=== PATIENT | male | born 1945 | race Caucasian/White ===

== ENCOUNTER → 2017-11-03 | Outpatient (CLI) | payer MEDICARE, OTHER ==
[~2017-11-03] MED LIST: ACCUPRIL PO; ACCUPRIL40 MG PO; ADULT LOW DOSE81 MG; ALBUTEROL INH INH; ALBUTEROL2.5 MG/0.1 INH; ALLOPURINOL 10100 M1 PO; ALLOPURINOL 30300 M1 PO; ALLOPURINOL PO; ASA5UEC PO; ATROVENT30 ML; AZITHROMYCIN1 GM PO; BENICAR20 MG PO; CARVEDILOL12.5 MG PO; CARVEDILOL6.25 MG PO; CELEBREX 200 M200 MG PO; CELEBREX PO; CELEXA 10 MG TA10 MG PO; CELEXA 20 MG TA20 M1 PO; CLONAZEPAM 0.50.5 M1 PO; COMBIVENT INH; DAILY MULTIPLE1 EACH PO; DEPO-TESTO200 MG/1 M INJECTION; EYE DROPS; FLEXERIL PO; FLOMAX0.4 MG PO; HCTZ PO; HYDROCHLOROTHIA25 M1 PO; HYDROCODONE-AP1 EACH PO; K-DUR10 MEQ PO; KEFLEX500 M1 PO; KLOR-CON 10 ER10 MEQ PO; LASIX 40 MG TAB40 M1 PO; LASIX 40 MG TAB40 M2 PO; LIORESAL 10 MG10 MG PO; LISINOPRIL10 MG PO; LOVASTAT20 PO; METAMUCIL1 EAC1 PO; METHADONE HCL 110 M1 PO; METHADONE HCL5 MG PO; METOPROLOL SUCC50 MG PO; METOPROLOL TART25 MG PO; MUCINEX600 MG PO; NEURONTIN100 MG PO; NORCO 10-325 T1 EACH PO; NORCO 5-325 TA1 EAC1 PO; POTASSIUM PO; PREDNISONE 10 M10 M1 PO; PROTONIX40 M1 PO; PROVENTIL; Q-VAR INH; QVAR HFA 440 MCG/UN1 INH; SINGULAIR 10 MG10 M1 PO; SINGULAIR 10 MG10 MG PO; TRAVATAN Z5 ML OP; TRAVATAN Z5 ML OPHTHALMIC; TYLENOL325 MG PO; XALATAN2.5 ML OPHTHALMIC; ZIAC
== END ==
LOC: M.RAD 12:17 → M.NUC 13:00
DX: R91.8 Other nonspecific abnormal finding of lung field (principal); I10 Essential (primary) hypertension; I63.50 Cerebral infarction due to unspecified occlusion or stenosis of unspecified cerebral artery

== ENCOUNTER 2018-03-04 07:28 | Inpatient (IN) | payer MEDICARE, OTHER ==
[~2018-03-04] VITALS: Ht 180.3 cm; Wt 113.9 kg
[~2018-03-04 07:28] MED LIST changes: -CLONAZEPAM 0.50.5 M1 PO; -FLOMAX0.4 MG PO; -KEFLEX500 M1 PO; -LASIX 40 MG TAB40 M2 PO; -LIORESAL 10 MG10 MG PO; -METOPROLOL TART25 MG PO
[2018-03-04 07:34] VITALS: BP 143/76
[2018-03-04] MEDS ORDERED: LASIX 40 MG TAB40 M2 PO (07:40)
[2018-03-04] MEDS ORDERED: KEFLEX500 M1 PO (07:41)
[2018-03-04] MEDS ORDERED: CLONAZEPAM 0.50.5 M1 PO (07:42)
[2018-03-04 08:16] LABS: ABSOLUTE EOSINOPHILS 0.4 thou/uL (0.0-0.7); ABSOLUTE LYMPHOCYTES 1.5 thou/uL (0.8-5.3); ABSOLUTE MONOCYTES 0.5 thou/uL (0.0-1.2); ABSOLUTE NEUTROPHILS 2.4 thou/uL (1.6-8.1); HEMATOCRIT 34.3 % (42.0-52.0); HEMOGLOBIN 11.8 gm/dL (14.0-18.0); LYMPHOCYTES 30.7 %; MCH 29.4 pg (26.0-34.0); MCHC 34.4 g/dL (28.0-37.0); MCV 85.5 fL (80.0-100.0); MONOCYTES 10.5 %; MPV 9.4 fl. (7.2-11.1); NUCLEATED RBCS 0 /100WBC; PLATELET COUNT* 154 thou/uL (150-400); POLYS 48.8 %; RBC 4.01 mil/uL (4.50-6.00); RDW-CV 17.4 % (10.5-14.5); WBC 4.9 thou/uL (4.0-11.0)
[2018-03-04 08:24] LABS: PROTIME 9.9 Seconds (9.20-11.50)
[2018-03-04 08:37] LABS: CALCIUM 9.3 mg/dL (8.5-10.1); CREATININE 2.6 mg/dL (0.6-1.3); POTASSIUM 3.6 mmol/L (3.5-5.1)
[2018-03-04 08:48] LABS: ALBUMIN 2.9 g/dL (3.4-5.0); TOTAL BILIRUBIN 0.5 mg/dL (<0.1-1.0); TOTAL PROTEIN 6.7 g/dL (6.4-8.2); TROPONIN-I LEVEL 0.56 ng/mL (<0.06)
[2018-03-04 10:15] VITALS: BP 180/97
[2018-03-04 10:59] VITALS: BP 140/77
[2018-03-04] MEDS ORDERED: LIORESAL 10 MG10 MG PO (11:31)
[2018-03-04 15:56] VITALS: BP 154/88
[2018-03-05] VITALS: BP 150/83
[2018-03-05 04:00] VITALS: BP 142/78
[2018-03-05 07:41] VITALS: BP 149/77
[2018-03-05 11:10] VITALS: BP 129/85
[2018-03-05 14:20] LABS: CALCIUM 10.2 mg/dL (8.5-10.1); CREATININE 2.7 mg/dL (0.6-1.3); MAGNESIUM 2.2 mg/dL (1.8-2.4); POTASSIUM 4.1 mmol/L (3.5-5.1)
--- NOTE | 2018-03-05 14:42 | EKG ---
[place] [address] ELECTROCARDIOGRAM REPORT Name: ROMINA CARDONA Room: [address] IN [facility].#: [id number] Admission: 03/04/18 Attend Phys: Joseph Hicks Discharge: Date of : 45 Report #: [id number] THIS REPORT FOR: //name// [facility] ED Test Date: 2018-03-04 Test Time: 07:44:43 Pat Name: ROMINA CARDONA Department: Room: Gender: Embroidery Assistant: Miguel SUTHERLAND : 1945 Requested By: Viral Thorpe Order Number: [id number] MD: Tobi Fernandez Measurements Intervals [place] Rate: 95 P: 29 SC: 222 QRS: -31 QRSD: 123 T: 106 QT: 361 QTc: 454 Interpretive Statements Sinus rhythm Atrial premature complexes Prolonged SC interval Left bundle branch block Baseline wander in lead(s) V3 Compared to ECG 11/01/2013 07:33:18 Atrial premature complex(es) now present Left bundle-branch block now present Left anterior fascicular block no longer present Left-axis deviation no longer present Myocardial infarct finding no longer present Electronically Signed On 03-05-2018 14:41:58 CDT by Tobi Fernandez [email or web address] <ELECTRONICALLY SIGNED> By: Tobi Fernandez MD, [facility] 03/05/18 1441 0744 0744 Tobi Fernandez MD, [facility] /EPI
--- NOTE | 2018-03-05 14:46 | EKG ---
[place] [address] ELECTROCARDIOGRAM REPORT Name: ROMINA CARDONA Room: [address] ADM IN [facility].#: [id number] Admission: 03/04/18 Attend Phys: Joseph Hicks Discharge: Date of : 45 Report #: [id number] THIS REPORT FOR: //name// [facility] Test Date: 2018-03-04 Test Time: 14:21:34 Pat Name: ROMINA CARDONA Department: Room: [address] Gender: M Carriage Dogger: : 1945 Requested By: Viral Thorpe Order Number: [id number] Reading MD: Tobi Fernandez Measurements Intervals [place] Rate: 94 P: 47 WI: 208 QRS: -28 QRSD: 122 T: 105 QT: 348 QTc: 436 Interpretive Statements Sinus rhythm with first-degree AV block Ventricular premature complex Nonspecific intraventricular conduction delay Anterior infarct, old Baseline wander in lead(s) V3 Compared to ECG 11/01/2013 07:33:18 Ventricular premature complex(es) now present Electronically Signed On 03-05-2018 14:45:54 CDT by Tobi Fernandez [email or web address] <ELECTRONICALLY SIGNED> By: Tobi Fernandez MD, FAC 03/05/18 1445 1421 1421 Tobi Fernandez MD, FAC /EPI
[2018-03-05 15:33] VITALS: BP 140/81
[2018-03-05 20:00] VITALS: BP 150/96
[2018-03-06 00:43] VITALS: BP 150/89
[2018-03-06 04:26] LABS: CALCIUM 9.4 mg/dL (8.5-10.1); CREATININE 2.4 mg/dL (0.6-1.3); POTASSIUM 4.1 mmol/L (3.5-5.1)
[2018-03-06 05:15] VITALS: BP 127/79
[2018-03-06 08:00] VITALS: BP 132/82
[2018-03-06 11:18] VITALS: BP 122/71
[2018-03-06 12:58] LABS: URINE BILIRUBIN NEGATIVE (Negative); URINE BLOOD NEGATIVE (Negative); URINE CLARITY CLEAR; URINE COLOR YELLOW; URINE GLUCOSE-RANDOM NEGATIVE (Negative); URINE KETONES NEGATIVE (Negative); URINE LEUKOCYTES-REFLEX NEGATIVE (Negative); URINE NITRITE-REFLEX NEGATIVE (Negative); URINE PROTEIN TRACE (Negative); URINE UROBILINOGEN 0.2 E.U./dl (0.2-1.0)
[2018-03-06 16:22] VITALS: BP 135/75
--- NOTE | 2018-03-06 16:32 | 2DMMODE ---
[place] [address] 2 D/M-MODE ECHOCARDIOGRAM Name: ROMINA CARDONA Room: [address] IN [facility]#: [id number] Admission: 03/04/18 Attend Phys: Verna Conklin Discharge: Date of : 45 Date of Service: 03/06/18 1631 Report #: [id number] THIS REPORT FOR: //name// APPROVED REPORT Study performed: 03/06/2018 15:27:17 EXAM: Comprehensive 2D, Doppler, and color-flow Echocardiogram Patient Location: In-Patient Room #: [facility] Status: routine BSA: 2.35 HR: 69 bpm BP: 132/82 mmHg Rhythm: NSR Other Information Study Quality: Good Indications Dyspnea 2D Dimensions LVEF(%): 66.69 (>50%) IVSd: 15.79 (7-11mm) LVOT Diam: 18.83 (18-24mm) LVDd: 41.97 mm PWd: 12.29 (7-11mm) Ascending Ao: 31.38 (22-36mm) LVDs: 26.64 (25-40mm) Aortic Root: 26.84 mm Strange's LVEF: 66.69 % Volumes Left Atrial Volume (Systole) LA ESV Index: 32.10 mL/m2 Aortic Valve AoV Peak Michael.: 1.95 m/s AO Peak Gr.: 15.23 mmHg LVOT Max P.31 mmHg AO Mean Gr.: 8.96 mmHg LVOT Mean P.72 mmHg LVOT Max V: 1.15 m/s AO V2 VTI: 37.45 cm LVOT Mean V: 0.76 m/s REAL (VTI): 1.89 cm2 LVOT V1 VTI: 25.45 cm Mitral Valve MV Mean Gr.: 6.02 mmHg E/A Ratio: 0.91 [place] [address] 2 D/M-MODE ECHOCARDIOGRAM Name: ROMINA CARDONA Room: [address] IN [facility].#: [id number] Admission: 03/04/18 Attend Phys: Verna Conklin Discharge: Date of : 45 Date of Service: 03/06/18 1631 Report #: [id number] MV Decel. Time: 423.90 ms MV E Max Michael.: 1.42 m/s MV PHT: 122.93 ms MVA (PHT): 1.79 cm2 TDI E/Lateral E': 20.29 E/Medial E': 23.67 Medial E' Michael.: 0.06 m/s Lateral E' Michael.: 0.07 m/s Pulmonary Valve PV Peak Michael.: 0.64 m/s PV Peak Gr.: 1.65 mmHg Tricuspid Valve RAP Estimate: 5.00 mmHg TR Peak Gr.: 26.73 mmHg RVSP: 31.00 mmHg PA Pressure: 31.00 mmHg Left Ventricle The left ventricle is normal size. There is normal LV segmental wall motion. Mild concentric left ventricular hypertrophy. Left ventricular systolic function is normal. The left ventricular ejection fraction is within the normal range. LVEF is 55-60%. The left ventricular diastolic function is normal. Right Ventricle The right ventricle is normal size. The right ventricular systolic function is normal. Atria Left atrium is mildly dilated. The right atrium size is normal. Aortic Valve Bioprosthetic aortic valve is present. No aortic regurgitation is present. There is no aortic valvular stenosis. Mitral Valve Moderate mitral annular calcification. Mild mitral regurgitation. Mild mitral stenosis. Tricuspid Valve The tricuspid valve is normal in structure. Mild tricuspid regurgitation. estimated pa pressure 35 mm [place] [address] 2 D/M-MODE ECHOCARDIOGRAM Name: DULCEROMINA L Room: [address] IN [facility]#: [id number] Admission: 03/04/18 Attend Phys: Verna Conklin Discharge: Date of : 45 Date of Service: 03/06/18 1631 Report #: [id number] The pulmonary valve is normal in structure. There is no pulmonic valvular regurgitation. Great Vessels The aortic root is normal in size. IVC is normal in size and collapses with >50% inspiration Pericardium There is no pericardial effusion. <Conclusion> Mild concentric left ventricular hypertrophy. LVEF is 55-60%. Left atrium is mildly dilated. Bioprosthetic aortic valve is present. Mild mitral regurgitation. Mild mitral stenosis. Mild tricuspid regurgitation. estimated pa pressure 35 mm Hg <ELECTRONICALLY SIGNED> By: Ajay Hernadez MD, [facility] 03/06/18 163 163 163 Ajay Hernadez MD, FAC /INF
[2018-03-06 20:00] VITALS: BP 151/63
[2018-03-07] VITALS: BP 114/71
[2018-03-07 04:00] VITALS: BP 108/71
[2018-03-07 09:29] LABS: CALCIUM 10.1 mg/dL (8.5-10.1); CREATININE 2.6 mg/dL (0.6-1.3); POTASSIUM 3.8 mmol/L (3.5-5.1)
[2018-03-07 12:00] VITALS: BP 115/59
--- NOTE | 2018-03-07 12:02 | CARDNUC ---
[place] [address] CARDIAC NUCLEAR IMAGING REPORT Name: ROMINA CARDONA Room: [address] IN [facility]#: [id number] Admission: 03/04/18 Attend Phys: Verna Conklin Discharge: Date of : 45 Date of Service: 03/07/18 1202 Report #: [id number] THIS REPORT FOR: //name// APPROVED REPORT Imaging Protocol: Stress Tc-99m/Rest Tc-99m 2 days Study performed: 03/05/2018 11:16:00 Indication: Dyspnea Patient Location: In-Patient Room #: 215 Stress Tech: Tanika River Stress Nurse: Radha Nielsen RN NM Tech:MICHAEL Olivo Ht: 5 ft 11 in Wt: 258 lbs BSA: 2.35 m2 BMI: 35.97 Medical History Medical History: HTN, Hyperlipidemia, PVD, CHF, PVD Medications: lisinopril, metoprolol, furosemide, KCL Allergies: atropine, shellfish Cardiac Risk Factors: Age, HTN, Hyperlipidemia, PVD Previous Cardiac Procedures: AVR Exercise History: Sedentary Meds Held (24 hrs): NONE Resting Data Rest SPECT myocardial perfusion imaging was performed in supine position 30 minutes following the intravenous injection of 42.0 mCi of Tc-99m Sestamibi. Time of rest injection: 0950 Date: 03/07/2018 Time of rest imagin The images were gated to evaluate regional wall motion and calculate left ventricular ejection fraction. Administration Route: IV Administration Site: Left Wrist Pharmacologic Stress Pharmacologic stress test was performed by injecting Regadenoson 0.4 mg IV push over 10-15 seconds immediately followed by the intravenous injection of 37.8 mCi of Tc-99m Sestamibi. Time of stress injection: 15:05 Date: 03/06/2018 Administration Route: IV Administration Site: [place] [address] CARDIAC NUCLEAR IMAGING REPORT Name: ROMINA CARDONA Room: [address]#: [id number] Admission: 03/04/18 Attend Phys: Verna Conklin Discharge: Date of : 45 Date of Service: 03/07/18 1202 Report #: [id number] Heart Rate at time of stress injection: 103 bpm. Gated Stress SPECT was performed 50 minutes after stress injection. The images were gated to evaluate regional wall motion and calculate left ventricular ejection fraction. Stress Test Details Stress Test: Pharmacologic stress was paired with low level exercise. Reason for pharmacologic stress test: physical limitation. HR Resting HR: 67 bpm Max Heart Rate (APMHR): 148 bpm Max HR Achieved: 103 bpm Target HR (85% APMHR): 125 bpm % of APMHR: 69 Recovery HR: 77 bpm BP Resting BP: 138/85 mmHg Max BP: 138/73 mmHg ECG Resting ECG: Sinus Rhythm, LBBB Stress ECG: Sinus Rhythm, LBBB ST Change: None Arrhythmia: None Recovery ECG: Sinus Rhythm, LBBB Recovery ST Change: None Recovery Arrhythmia: None Clinical Reason for Termination: Completed protocol Stress Symptoms: None Exercise duration: 4 min 0 sec Exercise capacity: 1.59 METs The patient tolerated Lexiscan infusion without significant symptoms. Stress ECG Conclusion The baseline 12-lead electrocardiogram shows sinus rhythm with left bundle-branch block. EKGs during and post Lexiscan infusion show sinus rhythm with left bundle-branch block. There were no acute ST or T wave changes when compared to baseline. There were no significant stress-induced [place] [address] CARDIAC NUCLEAR IMAGING REPORT Name: ROMINA CARDONA Room: [address]#: [id number] Admission: 03/04/18 Attend Phys: Verna Conklin Discharge: Date of : 45 Date of Service: 03/07/18 1202 Report #: [id number] Study: Good Artifact: No artifact Study Data At rest, the left ventricular ejection fraction was 78%.. Post stress, the left ventricular ejection was CA%.. TID = 1.22. Perfusion Normal left ventricular perfusion. Wall Motion Normal left ventricular wall motion. Nuclear Conclusion ECG Findings: non-diagnostic Clinical Findings: negative for ischemia Nuclear Findings: negative for ischemia Exercise Capacity: not assessed Left Ventricular Function: normal Risk Study: low Myocardial perfusion images show no defect to suggest infarct or ischemia. Left ventricular systolic function appears normal on gated studies. This is a low risk study. <Conclusion> The baseline 12-lead electrocardiogram shows sinus rhythm with left bundle-branch block. EKGs during and post Lexiscan infusion show sinus rhythm with left bundle-branch block. There were no acute ST or T wave changes when compared to baseline. There were no significant stress-induced arrhythmias. <ELECTRONICALLY SIGNED> By: Tobi Fernandez MD, FACC 03/07/18 1202 120 120 Tobi Fernandez MD, FACC /INF
--- NOTE | 2018-03-07 15:00 | CON ---
[address] [address] CONSULTATION Name: ROMINA CARDONA Room: [address] IN ..#: [id number] Admission: 03/04/18 Attend Phys: Joseph Hicks Discharge: Date of : 45 Report #: [id number] THIS REPORT FOR: //name// CC: Corey Conklin DATE OF SERVICE: 03/04/2018 CARDIOLOGY CONSULTATION INDICATION: Elevated troponin. HISTORY OF PRESENT ILLNESS: The patient is a 72-year-old gentleman with history of bioprosthetic aortic valve placement in 2007. At that time, his coronary arteries were not affected. He has carotid vascular disease carotid Doppler studies 2 weeks ago. He is stable. He did not require carotid endarterectomy. He is admitted to the hospital with increasing shortness of breath, dyspnea, but without orthopnea. He reports symptoms of shortness of breath, significantly worse over the last week, but since the time of pneumonia 6 months ago. He denies chest pain. He is without other cardiac complaint. His troponin is 0.5. PAST MEDICAL HISTORY: 1. Bioprosthetic aortic valve replacement in 2007. 2. Chronic renal insufficiency. 3. Anemia. 4. Carotid vascular disease. 5. Hypertension. 6. Hyperlipidemia. PAST SURGICAL HISTORY: 1. Aortic valve replacement. 2. Back surgery. 3. Carpal tunnel release. 4. Total hip arthroplasty. 5. Trigger finger release. 6. Ulnar nerve repair. ALLERGIES: SHELLFISH AND ATROPINE. CURRENT MEDICATIONS: Albuterol q. 4 hours p.r.n., cephalexin 500 mg t.i.d., Celexa 10 mg at bedtime, clonazepam 0.5 mg daily, furosemide 40 mg b.i.d., Neurontin 100 mg b.i.d., [place] 5/325 q. 6 hours p.r.n., Combivent inhaler as directed, Xalatan eyedrops at bedtime, lisinopril 10 mg daily, lovastatin 20 mg every other day, Singulair 10 mg daily, potassium chloride 10 [place] [address] CONSULTATION Name: DULCEROMINA L Room: [address]#: [id number] Admission: 03/04/18 Attend Phys: Joseph Hicks Discharge: Date of : 45 Report #: [id number] SOCIAL HISTORY: The patient is , retired. He drinks alcohol occasionally. He does not smoke. FAMILY HISTORY: Noncontributory. REVIEW OF SYSTEMS: A 14-point review of systems is positive for asthma, shortness of breath with exercise, edema, heart murmur, history of gastric ulcers, arthritis. PHYSICAL EXAMINATION: VITAL SIGNS: Stable. Blood pressure 140/77, pulse 79. GENERAL: This is a pleasant, morbidly obese white male,, in no distress. Mood and affect appropriate. HEENT: Extraocular muscles intact. Mucous membranes are moist. The patient appears to have exophthalmus. NECK: Shows no jugular venous distention. CHEST: Clear. CARDIOVASCULAR: Regular rhythm with grade 2/6 systolic ejection murmur. ABDOMEN: Soft, nontender, positive bowel sounds. EXTREMITIES: 2-3+ pitting edema to the knees bilaterally. Peripheral pulses palpable. SKIN: Warm and dry. A 12-lead EKG shows sinus rhythm with premature atrial contractions and left bundle branch block. LABORATORY DATA: Reviewed. Sodium 138, potassium 3.6, chloride 100, bicarb 27, BUN 44, creatinine 2.6, serum glucose 111. LFTs within normal limits. Albumin 2.9. Troponin 0.56. NT-proBNP 624. White blood cell count 4.9, hemoglobin 11.8, platelet count 154,000. VQ scan unremarkable. Lower extremity Doppler studies unremarkable. Chest x-ray: No acute cardiopulmonary abnormality noted. Midline sternotomy changes noted. IMPRESSION AND RECOMMENDATIONS: 1. Elevated troponin, etiology not clear at this point in time. The patient is not having symptoms to suggest acute coronary syndrome. We would continue serial troponins. We will check echocardiogram. Consider stress testing once the patient's volume status is improved. 2. Acute on chronic heart failure, likely diastolic. Repeat echocardiogram. Recommend diuresis. 3. Hypertension. Suspect this will improve with diuresis. Continue home medications as outlined above. 4. Chronic renal insufficiency per [place] [address] CONSULTATION Name: ROMINA CARDONA Room: [address] IN [facility]#: [id number] Admission: 03/04/18 Attend Phys: Joseph Hicks Discharge: Date of : 45 Report #: [id number] 5. Status post bioprosthetic aortic valve replacement. We will repeat echocardiogram to evaluate functioning. 6. Carotid stenosis, bilateral. Recent carotid Doppler study shows this to be stable. <ELECTRONICALLY SIGNED> By: Tobi Fernandez MD, FACC 03/07/18 1500 1322 [facility] Fern[facility] MD, FACC /nt
--- NOTE | 2018-03-07 15:57 | CON ---
[address] [address] CONSULTATION Name: ROMINA CARDONA Room: [address] IN [facility]#: [id number] Admission: 03/04/18 Attend Phys: Joseph Hicks Discharge: Date of : 45 Report #: [id number] THIS REPORT FOR: //name// CC: Corey Conklin DATE OF SERVICE: 03/07/2018 ATTENDING PHYSICIAN: Dr. Conklin. REASON FOR EVALUATION: Right lower extremity inflammatory eruption, suspected cellulitis. HISTORY OF PRESENT ILLNESS: Chart reviewed, patient examined. This is a 72-year-old with history of aortic valve replacement who was admitted on 03/04/2018 with complaints of progressive dyspnea over the course of several weeks and gained roughly 20 pounds. He noted that his legs were quite markedly enlarged, he did become unsteady on his feet as well. It is not clear if he had fevers or chills. He was evaluated and underwent diuresis; however, noted that the persistent inflammation was associated, in particular, with the right lower extremity. He had multiple areas of superficial injury with eschars. He notes historically he has not had a cellulitis in the past. Occasionally, he does have leg swelling. Due to concerns about possible cellulitis, he was started empirically on cefazolin. Clinically, he has improved overall. ALLERGIES: SHELLFISH AND ATROPINE. CURRENT MEDICATIONS: Include furosemide, atorvastatin, cefazolin, ipratropium and albuterol inhaler, albuterol, potassium chloride, metoprolol, clonazepam, gabapentin, ipratropium, baclofen, hydrocodone and montelukast. PAST MEDICAL HISTORY: History of hypertension, aortic valve replacement with bovine, history of asthma, glaucoma, back fusion, history of depression. SOCIAL HISTORY: Nonsmoker, occasional ethanol. FAMILY HISTORY: Noncontributory. REVIEW OF SYSTEMS: As above. Denies significant gastrointestinal-related complaints. PHYSICAL EXAMINATION: GENERAL: He is alert, cooperative, appropriate, in mild distress. VITAL SIGNS: Temperature 98.1, pulse 62, respirations 18, blood pressure 139/117. SKIN: Warm, [place] [address] CONSULTATION Name: DULCEROMINA L Room: [address]#: [id number] Admission: 03/04/18 Attend Phys: Joseph Hicks Discharge: Date of : 45 Report #: [id number] HEENT: Unremarkable. NECK: Supple. LUNGS: Few scattered crackles at the bases. HEART: Regular. Borderline bradycardic. I do not appreciate a murmur. ABDOMEN: Soft. It is obese, protuberant in fact. There are no apparent peritoneal signs. EXTREMITIES: Bilateral lower extremities have changes consistent with chronic venous stasis insufficiency, he has got some superficial sites with eschar. There are no open ulcers, no bullous lesions at this point. There is moderate degree of inflammation, in particular, right greater than left. LABORATORY AND X-RAY DATA: Electrolytes: Sodium 136, potassium 3.8, chloride 97, bicarbonate is 31, BUN and creatinine 60 and 2.6, glucose of 159, estimated GFR of 24. Urinalysis unremarkable. Echo, EF of 55-60%, mild mitral regurg, mild mitral stenosis, bioprosthetic aortic valve. Blood cultures sterile thus far. TSH of 2.450. CBC: White count of 4.9, H and H 11.8 and 34.3, platelets of 154. Lactic acid initially was 0.9. Chest x-ray, no acute process. ASSESSMENT: Right lower extremity inflammatory eruption, I think there is perhaps a component of cellulitis in addition to venous stasis insufficiency. We will continue therapy additional 24 hours, adjusted for his renal insufficiency, add compression and elevation as well. We will plan on transition to oral antibiotics prior to discharge. At this point, he is not overtly toxic. He needs certainly dressings simultaneously. . <ELECTRONICALLY SIGNED> By: Fredrick Padron MD 03/07/18 1557 1037 [email or web address] Padron MD /nt
[2018-03-07 16:00] VITALS: BP 138/81
[2018-03-07 20:00] VITALS: BP 127/71
[2018-03-08] VITALS: BP 106/65
[2018-03-08 04:00] VITALS: BP 114/71
[2018-03-08 05:43] LABS: CALCIUM 9.9 mg/dL (8.5-10.1); CREATININE 2.7 mg/dL (0.6-1.3); POTASSIUM 4.4 mmol/L (3.5-5.1)
[2018-03-08 08:00] VITALS: BP 146/87
[2018-03-08 12:00] VITALS: BP 130/73
[2018-03-08] MEDS ORDERED: FLOMAX0.4 MG PO (13:00)
[2018-03-08] MEDS ORDERED: LASIX 40 MG TAB40 M1 PO (13:01)
[2018-03-08] MEDS ORDERED: METOPROLOL TART25 MG PO (15:42)
--- NOTE | 2018-03-09 09:12 | CON ---
[address] [address] CONSULTATION Name: ROMINA CARDONA Room: [address] IN .R.#: [id number] Admission: 03/04/18 Attend Phys: Joseph Hicks Discharge: 03/08/18 Date of : 45 Report #: [id number] THIS REPORT FOR: //name// CC: Corey Conklin DATE OF SERVICE: 03/06/2018 REFERRING PHYSICIAN: Dr. Conklin. REASON FOR NEPHROLOGY CONSULTATION: Acute kidney injury on chronic kidney disease, stage 3. CHIEF COMPLAINT: Shortness of air. 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 He follows with Dr. Horton at Nephrology office and normally takes Lasix 40 mg once a day, but a week ago, he called our office and we asked him to increase her Lasix to 40 mg twice a day because of his complaints of shortness of breath and leg swelling. He ended up coming to the hospital on Tuesday because of the same complaints. He has been started on Lasix 40 mg IV twice a day. Also, he had some elevated troponin with his peak troponin being 0.56. His creatinine was 2.6 when he came into the hospital and 2.7 yesterday and 2.4 today. He also is on lisinopril. The patient also states that for the past few weeks or so, he was not watching his diet very carefully and was consuming more salt than he needed to. He also has a weak urinary stream that he is complaining of. He did not report any use of NSAIDs. Cardiology is planning to do a stress test on him this afternoon. He has already had an echo done and the report of that is not back yet. He does have a history of chronic diastolic congestive heart failure. His blood pressures have been stable; in fact, they were high when he came in, but now they have been better. He has also been started on metoprolol during this admission. ALLERGIES: SHELLFISH AND ATROPINE. REVIEW OF SYSTEMS: Bilateral leg swelling and weight gain of 20 pounds in the last 5 weeks. His right leg is more swollen than the left leg and right leg also has increasing redness. Other review of systems was done and they were negative. PAST MEDICAL HISTORY: Includes history of pulmonary histoplasmosis, chronic kidney disease stage 3, baseline creatinine 1.8-2, likely [place] [address] CONSULTATION Name: ROMINA CARDONA Room: [address] IN .R.#: [id number] Admission: 03/04/18 Attend Phys: Joseph Hicks Discharge: 03/08/18 Date of : 45 Report #: [id number] He has solitary kidney from . Also, has had aortic valve replaced. Asthma, glaucoma, and benign hypertension. PAST SURGICAL HISTORY: Includes history of bilateral hip replacement, cataract surgery, aortic valve replacement, has a bioprosthetic aortic valve, has spinal cord surgery, had a nerve implant placed last week, and fusion of his back. FAMILY HISTORY: Noncontributory. SOCIAL HISTORY: Does not smoke, uses alcohol occasionally, does not use recreational drugs. HOME MEDICATIONS: They include Celexa, gabapentin, potassium chloride 10 mEq once a day, clonazepam, baclofen, lovastatin, lisinopril 10 mg once a day, furosemide 40 mg twice a day. ALLERGIES: CEPHALEXIN, ALBUTEROL, IPRATROPIUM, MONTELUKAST, LATANOPROST. PHYSICAL EXAMINATION: VITAL SIGNS: Blood pressure is 132/82, pulse rate 69, respiration rate is 19, temperature 36.8, 96% oxygen saturation, not on any oxygen. GENERAL: He is sitting up in chair. He is comfortable, not short of breath right now at rest. HEAD, EYES, EARS, NOSE, AND THROAT: Mucous membranes are moist. NECK: No JVD. CHEST: Bilateral diminished breath sounds. No crackles or wheezing. CARDIOVASCULAR: S1, S2 normal. No murmurs. ABDOMEN: Soft, obese and nondistended and no abdominal wall edema. LOWER EXTREMITIES: He has bilateral lower extremity edema. Left lower extremity, there is 2+ ankle edema. Right extremity, there is 3+ edema and there is erythema also over the right lower extremity. NEUROLOGICAL FUNCTION: Gross neurological function is intact. PSYCHIATRIC: Mood and affect seems normal. LABORATORY DATA: From 03/04/2018, hemoglobin was 11.8. From today, sodium was 139, potassium was 4.1, creatinine was 2.4 and other labs were reviewed. IMAGING: Venous Doppler study and chest x-ray and a perfusion scan of the lungs were reviewed. ASSESSMENT AND PLAN: 1. Acute kidney injury on chronic kidney disease stage 3, likely due to renal venous congestion: The patient is still fluid overloaded. I agree with doing Lasix 40 mg IV b.i.d. Follow echocardiogram. Avoid lisinopril, so I am holding it right now because of acute kidney injury. Baseline creatinine is 1.8-2. Currently, creatinine is 2.4, which is better from yesterday when it was 2.7. [address] [place] [address] CONSULTATION Name: ROMINA CARDONA Room: [address] IN ..#: [id number] Admission: 03/04/18 Attend Phys: Joseph Hicks Discharge: 03/08/18 Date of : 45 Report #: [id number] Avoid nephrotoxic agents. We will also check a bladder scan as well as a UA. 2. Non-STEMI: Troponin peaked at 0.56. The patient is supposed to get a stress test. Cardiology is closely following him. 3. Hypertension: Blood pressure was high when he came in and now it is controlled. He has also been started on metoprolol. Try to keep mean arterial pressure more than 65. Avoid NENO inhibitor, ARB right now. 4. Fluid overload: Acute on chronic diastolic congestive heart failure exacerbation: Ejection fraction was 60-65% last year in February with diastolic dysfunction. Continue with Lasix 40 mg IV b.i.d. Salt restriction, 1.5 liter fluid restriction per day. Thank you for this consultation. Plan was discussed with the patient as well as the patient's nurse Elizabeth. We will continue to follow along with you. <ELECTRONICALLY SIGNED> By: Haylye Albert MD 03/09/18 0912 1056 1808AMD scarlet Lauren
== END 2018-03-08 16:48 | disposition home or self-care (01) | DRG 280 ==
LOC: M.ERS 07:28 → M.TBA-ER 09:32 → M.2W 09:32
PROVIDERS: Family Medicine; Internal Medicine; Internal Medicine Cardiovascular Disease; ADMIT Internal Medicine
DX: I21.A1 Myocardial infarction type 2 (principal); I50.33 Acute on chronic diastolic (congestive) heart failure; I13.0 Hypertensive heart and chronic kidney disease with heart failure and stage 1 through stage 4 chronic kidney disease, or unspecified chronic kidney disease; N17.9 Acute kidney failure, unspecified; L03.115 Cellulitis of right lower limb; N18.3 Chronic kidney disease, stage 3 (moderate); Z96.643 Presence of artificial hip joint, bilateral; H40.9 Unspecified glaucoma; E78.5 Hyperlipidemia, unspecified; I65.23 Occlusion and stenosis of bilateral carotid arteries; J45.909 Unspecified asthma, uncomplicated; F32.9 Major depressive disorder, single episode, unspecified; J44.9 Chronic obstructive pulmonary disease, unspecified; E66.9 Obesity, unspecified; Z68.35 Body mass index [BMI] 35.0-35.9, adult; Z90.89 Acquired absence of other organs; Z95.2 Presence of prosthetic heart valve; Z98.1 Arthrodesis status; Z79.899 Other long term (current) drug therapy; Z88.8 Allergy status to other drugs, medicaments and biological substances; Z91.013 Allergy to seafood; Z87.01 Personal history of pneumonia (recurrent); Z98.49 Cataract extraction status, unspecified eye

== ENCOUNTER 2018-09-05 15:05 | Inpatient (IN) | payer MEDICARE, OTHER ==
[~2018-09-05] VITALS: Ht 180.3 cm; Wt 106.6 kg
[~2018-09-05 15:05] MED LIST changes: +CLONAZEPAM 0.50.5 M1 PO; +FLOMAX0.4 MG PO; +KEFLEX500 M1 PO; +LASIX 40 MG TAB40 M2 PO; +LIORESAL 10 MG10 MG PO; +METOPROLOL TART25 MG PO
[2018-09-05 15:22] VITALS: BP 135/80
[2018-09-05] MEDS ORDERED: DEMADEX20 MG PO (15:27)
[2018-09-05 15:58] LABS: ANION GAP 14 mmol/L (7-16); BUN 38 mg/dL (7-18); CALCIUM 8.9 mg/dL (8.5-10.1); CHLORIDE 98 mmol/L (98-107); CO2 21 mmol/L (21-32); CREATININE 1.9 mg/dL (0.6-1.3); GLUCOSE 84 mg/dL (70-99); POTASSIUM 3.9 mmol/L (3.5-5.1); SODIUM 133 mmol/L (136-145)
[2018-09-05 16:15] LABS: ALBUMIN 2.9 g/dL (3.4-5.0); ALKALINE PHOSPHATASE 71 U/L (46-116); NT-PRO BRAIN NAT PEPTIDE 1857 pg/mL (<300); SGOT 22 U/L (15-37); SGPT 25 U/L (30-65); TOTAL BILIRUBIN 0.2 mg/dL (<0.1-1.0); TOTAL PROTEIN 6.8 g/dL (6.4-8.2); TROPONIN-I LEVEL <0.06 ng/mL (<0.06)
[2018-09-05 16:20] LABS: HEMATOCRIT 35.8 % (42.0-52.0); HEMOGLOBIN 12.2 gm/dL (14.0-18.0); MCH 29.5 pg (26.0-34.0); MCV 86.8 fL (80.0-100.0); MPV 9.4 fl. (7.2-11.1); NUCLEATED RBCS 0 /100WBC; PLATELET COUNT* 160 thou/uL (150-400); RBC 4.12 mil/uL (4.50-6.00); RDW-CV 17.8 % (10.5-14.5); WBC 8.5 thou/uL (4.0-11.0)
[2018-09-05 16:42] LABS: ABSOLUTE EOSINOPHILS 0.2 thou/uL (0.0-0.7); ABSOLUTE LYMPHOCYTES 2.1 thou/uL (0.8-5.3); ABSOLUTE MONOCYTES 1.1 thou/uL (0.0-1.2); ABSOLUTE NEUTROPHILS 5.1 thou/uL (1.6-8.1)
[2018-09-05 16:43] LABS: ANISOCYTOSIS 1+; OVALOCYTES Occasional; PLATELET ESTIMATE ADEQUATE
[2018-09-05 17:04] VITALS: BP 144/76
--- NOTE | 2018-09-05 18:00 | NUR ---
Pt to room 208 via cart. Afib on monitor in 70s. Pt denies chest pain and SOA. Pt oriented to room,call light within reach
[2018-09-05] MEDS ORDERED: LISINOPRIL5 MG PO (18:17)
[2018-09-05 18:27] VITALS: BP 139/85
[2018-09-05 20:00] VITALS: BP 143/85
[2018-09-06] VITALS: BP 116/66
--- NOTE | 2018-09-06 01:59 | NUR ---
ASSUMED CARE OF PATIENT AT 1900. VSS, AFEBRILE. DENIES PAIN. REFUSED LOVENOX DUE TO A HX OF ULCERS AND BRUISING. EDUCATION GIVEN, PATIENT WILL TALK TO IN AM. CARIDOLOGY CONSULTED, NPO AFTER MIDNIGHT. WILL CONTINUE TO MONITOR.
[2018-09-06 04:00] VITALS: BP 128/77
[2018-09-06 05:24] LABS: ABSOLUTE BASOPHILS 0.1 thou/uL (0.0-0.2); ABSOLUTE EOSINOPHILS 0.2 thou/uL (0.0-0.7); ABSOLUTE LYMPHOCYTES 1.6 thou/uL (0.8-5.3); ABSOLUTE MONOCYTES 0.7 thou/uL (0.0-1.2); ABSOLUTE NEUTROPHILS 3.5 thou/uL (1.6-8.1); BASOPHILS 1.4 %; EOSINOPHILS 3.9 %; HEMATOCRIT 32.6 % (42.0-52.0); HEMOGLOBIN 10.9 gm/dL (14.0-18.0); MCH 29.2 pg (26.0-34.0); MCHC 33.6 g/dL (28.0-37.0); MCV 86.9 fL (80.0-100.0); MONOCYTES 11.3 %; MPV 9.2 fl. (7.2-11.1); NUCLEATED RBCS 0 /100WBC; PLATELET COUNT* 143 thou/uL (150-400); POLYS 57.4 %; RBC 3.75 mil/uL (4.50-6.00); RDW-CV 17.9 % (10.5-14.5); WBC 6.1 thou/uL (4.0-11.0)
[2018-09-06 05:35] LABS: CALCIUM 8.8 mg/dL (8.5-10.1); POTASSIUM 4.4 mmol/L (3.5-5.1)
[2018-09-06 07:30] VITALS: BP 120/66
--- NOTE | 2018-09-06 11:36 | NUR ---
RECEIVED PT CARE 0700. HE IS AWAKE/ALERT AND ORIENTED X4. VSS. 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 HEART RATE 70S. HE IS UP AD ALBERT IN ROOM WITH BATHROOM PRIVILEDGES. GAIT IS STEADY. AM ASSESSMENT CHARTED. MEDS GIVEN PER MAR. EDUCATED THE PATIENT ON THE PLAN OF CARE. CALL LIGHT WITHIN REACH. WILL CONTINUE TO MONITOR.
[2018-09-06 12:00] VITALS: BP 139/74
--- NOTE | 2018-09-06 12:05 | NUR ---
Pt is A&O. Resides at home with family. Normally independent with ADLs. Pt has a cane that he rarely uses and a walker, that he uses for longer community distances. Pt also has a shower chair. Pt sleeps with a cpap provided through [facility] [place]. No home o2. No hx of HH or SNF. Per Pt, anticipate dc tomorrow, unsure of if he will need anything at dc. Following.
--- NOTE | 2018-09-06 13:52 | EKG ---
[place] [address] ELECTROCARDIOGRAM REPORT Name: ROMINA CARDONA Room: [address] ADM IN .R.#: [id number] Admission: 09/05/18 Attend Phys: Clayton Dimas MD Discharge: Date of : 45 Report #: [id number] THIS REPORT FOR: //name// [facility] ED Test Date: 2018-09-05 Test Time: 15:49:03 Pat Name: ROMINA CARDONA Department: Room: [facility] Gender: M Emt Paramedic: DAVID : 1945 Requested By: Pranav Hercules Order Number: [id number] MD: Ajay Hernadez Measurements Intervals [place] Rate: 88 P: [place]: QRS: -27 QRSD: 120 T: 78 QT: 380 QTc: 460 Interpretive Statements Atrial fibrillation Nonspecific intraventricular conduction delay Anterior infarct, old Compared to ECG 03/04/2018 14:21:34 Sinus rhythm no longer present Ventricular premature complex(es) no longer present Myocardial infarct finding still present Electronically Signed On 09-06-2018 13:52:47 [employer]CIAL [employer]UTION [employer]ER by Ajay Hernadez [email or web address] <ELECTRONICALLY SIGNED> By: Ajay Hernadez MD, FAC 09/06/18 1352 1549 1549 Ajay Hernadez MD, [facility] /EPI
[2018-09-06 16:00] VITALS: BP 143/81
[2018-09-06 19:10] VITALS: BP 128/74
--- NOTE | 2018-09-06 23:05 | NUR ---
PT ASSESSMENT COMPLETE AT START OF SHIFT. PT C/O CHRONIC BACK PAIN. PT UP AD ALBERT TO BR WITH STEADY GAIT. TRACING AFIB ON THE MONITOR. HOURLY ROUNDING FOR SAFETY. CLWR.
[2018-09-07] VITALS: BP 111/68
[2018-09-07 04:00] VITALS: BP 140/83
--- NOTE | 2018-09-07 05:05 | NUR ---
PT SLEPT WELL THIS SHIFT. NO C/O CP, SOA. PT TRACING AFIB ON MONITOR. NO NEW CONCERNS AT THIS TIME. CLWR.
[2018-09-07 05:17] LABS: INR 1.1; PROTIME 11.1 Seconds (9.20-11.50)
[2018-09-07 05:51] LABS: CHOLESTEROL 157 mg/dL (<200); HDL CHOLESTEROL 59 mg/dL (>40); LDL CHOLESTEROL 78 mg/dL (<100); SERUM ASSESSMENT Clear; TC:HDL 2.7 Ratio (Not establshd); TRIGLYCERIDE 102 mg/dL (<150); VLDL 20 mg/dL (<40)
[2018-09-07 08:00] VITALS: BP 133/77
[2018-09-07 09:07] VITALS: BP 133/77
--- NOTE | 2018-09-07 10:46 | CON ---
[address] [address] CONSULTATION Name: ROMINA CARDONA Room: [address] IN [place].#: [id number] Admission: 09/05/18 Attend Phys: Clayton Dimas MD Discharge: Date of : 45 Report #: [id number] THIS REPORT FOR: //name// CC: Clayton Kenny DATE OF SERVICE: 09/06/2018 HISTORY OF PRESENT ILLNESS: The patient is a 73-year-old white male who I was asked to see in the hospital today after he complained of being short of breath. The patient initially presented in 2007 with shortness of breath. He was found to have heart murmur. He was found to have evidence of aortic stenosis. I actually performed a cardiac catheterization in 2007 that showed severe aortic stenosis, normal left ventricular function, normal LAD and circumflex artery. 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 He then underwent aortic valve replacement using a tissue aortic valve at [facility] in 2007. He has done fairly well since that time. He was actually just admitted here to [place] in February. He was seen by my partner, Dr. Fernandez. He was admitted with increasing shortness of breath. He underwent an extensive evaluation in February that included an echocardiogram that showed left ventricular hypertrophy, ejection fraction 60%, left atrial enlargement. The tissue aortic valve appeared to be functioning normally, although there was mild stenosis of the mitral valve with a mean gradient of 6 mmHg across the mitral valve. He also underwent a Lexiscan Cardiolite that showed ejection fraction of 78% with normal perfusion. The patient returned to see my nurse practitioner in June. She made no changes in his medications at that time. The patient notes that recently he has had a cough. He then developed increasing shortness of breath for the past week. He finally came to the Emergency Room yesterday and was admitted. He actually denied any increasing edema. He has had no chest pain. He denied any palpitation or lightheadedness. When he came to the Emergency Room, he was noted to be in atrial fibrillation and the patient was admitted. PAST MEDICAL HISTORY: Significant for cervical spine surgery, carpal tunnel surgery, hip replacement, ulnar nerve repair. He recently had a nerve stimulator implanted. He has a history of hypertension, hyperlipidemia, sleep apnea, chronic kidney disease, COPD. MEDICATIONS: Include lisinopril, inhaler, Lipitor, Celexa, Klonopin, Neurontin, hydrocodone, Singulair, potassium, torsemide. He takes Zaroxolyn for occasional edema. ALLERGIES: He has previous intolerance TO SHELLFISH. FAMILY HISTORY: [place] [address] CONSULTATION Name: ROMINA CARDONA Room: [address] IN ..#: [id number] Admission: 09/05/18 Attend Phys: Clayton Dimas MD Discharge: Date of : 45 Report #: [id number] SOCIAL HISTORY: He is . He and his live here in [place]. 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 He is . Nonsmoker. No alcohol abuse. 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 He has a history of COPD, he is followed by Pulmonology. He has a history of peptic ulcer disease. He has chronic kidney disease, followed by service clerk. No history of cancer. No psychiatric illness. No chronic skin condition. PHYSICAL EXAMINATION: GENERAL: Revealed an elderly male who was lying in bed. He appeared in no acute distress. VITAL SIGNS: He had a blood pressure of 120/70, pulse is 80 and irregular. He is afebrile. HEENT: He is anicteric. Conjunctivae pink. Mucous membranes moist. NECK: Veins do not appear distended. No carotid bruits. Neck was supple. CHEST: Without wheezes. CARDIAC: Regular rate and rhythm, grade 2 systolic ejection murmur. ABDOMEN: Soft. EXTREMITIES: Had no pitting edema. Dorsalis pedis pulse cannot be palpated. SKIN: Cool and dry. NEUROLOGIC: Nonfocal. His ECG shows atrial fibrillation with a left bundle-branch block. His workup included a chest x-ray in the Emergency Room yesterday that showed normal heart size and clear lung roman. He underwent a V/Q scan of the lungs that was felt to be low probability for pulmonary embolus. LABORATORY DATA: Sodium 136, BUN 41, creatinine 2.0, glucose 94. Liver function studies were normal. Albumin 2.9, troponin 0.06. BNP 1857. TSH 1.3. White blood cell count 6.1. Hemoglobin 10.9, it was 11.4 in 2014. IMPRESSION AND RECOMMENDATIONS: 1. Previous aortic valve replacement using a tissue valve. Valve appears to be functioning normally. 2. Shortness of breath, reason unclear. The patient does have chronic obstructive pulmonary disease. 3. Atrial fibrillation, new onset. Rate noted to be controlled. I would recommend anticoagulation. 4. Chronic kidney disease. 5. Hypertension. The patient is on an NENO inhibitor. 6. Hyperlipidemia. The patient is on a statin drug. 7. Chronic back pain. The patient has a nerve stimulator in place. [address] [address] CONSULTATION Name: ROMINA CARDONA Room: [address] IN [facility]#: [id number] Admission: 09/05/18 Attend Phys: Clayton Dimas MD Discharge: Date of : 45 Report #: [id number] 8. Anemia. No recent bleeding. 9. Cerebellar mass. The patient is followed by Neurology. <ELECTRONICALLY SIGNED> By: Ajay Hernadez MD, FACC 09/07/18 1046 0906 1154Djovanni Hernadez MD, FACC /nt
--- NOTE | 2018-09-07 11:15 | NUR ---
VSS, ASSUMED CARE THIS AM, ASSESSMENT PERFORMED AND CHARTED, FALL PRECAUTIONS IN PLACE AND CALL LIGHT IN REACH, PT IS A&O4 ON RA AND UP AD ALBERT, PT STATES HE HAS BACK PAIN 4 OUT OF 10, PT GOAL IS TO DC TO HOME ON DAY OF CARE. WILL FOLLOW WITH PLAN OF CARE.
[2018-09-07] MEDS ORDERED: XARELTO15 MG PO (12:33)
--- NOTE | 2018-09-07 13:47 | EKG ---
[place] [address] ELECTROCARDIOGRAM REPORT Name: ROMINA CARDONA Room: [address] ADM IN .R.#: [id number] Admission: 09/05/18 Attend Phys: Clayton Dimas MD Discharge: Date of : 45 Report #: [id number] THIS REPORT FOR: //name// [facility] Test Date: 2018-09-07 Test Time: 08:44:11 Pat Name: ROMINA CARDONA Department: Room: [address] Gender: M Consumer Credit Counselor: : 1945 Requested By: Ajay Hernadez Order Number: [id number] Reading MD: Mark Jimenez Measurements Intervals [place] Rate: 84 P: [place]: QRS: -22 QRSD: 116 T: 95 QT: 377 QTc: 446 Interpretive Statements Atrial fibrillation Incomplete left bundle branch block Low voltage, precordial leads Anterior Q waves, possibly due to ILBBB Baseline wander in lead(s) II,III,aVF,V1,V2,V3,V4,V5 Compared to ECG 09/05/2018 15:49:03 Left bundle-branch block now present Low QRS voltage now present Q waves now present Intraventricular conduction delay no longer present Myocardial infarct finding no longer present Electronically Signed On 09-07-2018 13:47:09 DRAWING HAND by Mark Jimenez [email or web address] <ELECTRONICALLY SIGNED> By: Mark Jimenez MD, [facility] 09/07/18 1347 0844 0844 Mark Jimenez MD, [facility] /EPI
--- NOTE | 2018-09-07 17:51 | NUR ---
VSS, RECIEVED D/C ORDERS, FILLED OUT D/C ORDERS, PUT IN FOLLOW UP APPOINTMENTS, PROVITED SCRIPTS AND EDUCATION PAPERS, TOOK OUT IV AND TELE MOITOR, PT HAS NO QUESTIONS AT TIME OF D/C PT GATHERED ALL BELONGINGS AND WAS TAKEN OUT VIA WHEEL CHAIR TO CAR
== END 2018-09-07 18:40 | disposition home or self-care (01) | DRG 291 ==
LOC: M.ERS 15:05 → M.2W 16:23 → M.TBA-ER 16:23 → M.2W 17:10
PROVIDERS: Emergency Medicine Emergency Medical Services; Internal Medicine Cardiovascular Disease; ADMIT Internal Medicine
DX: I13.0 Hypertensive heart and chronic kidney disease with heart failure and stage 1 through stage 4 chronic kidney disease, or unspecified chronic kidney disease (principal); I50.33 Acute on chronic diastolic (congestive) heart failure; N17.9 Acute kidney failure, unspecified; E87.1 Hypo-osmolality and hyponatremia; N18.3 Chronic kidney disease, stage 3 (moderate); I48.91 Unspecified atrial fibrillation; Z96.643 Presence of artificial hip joint, bilateral; H40.9 Unspecified glaucoma; J45.909 Unspecified asthma, uncomplicated; E78.5 Hyperlipidemia, unspecified; J44.9 Chronic obstructive pulmonary disease, unspecified; G89.29 Other chronic pain; M19.90 Unspecified osteoarthritis, unspecified site; G47.33 Obstructive sleep apnea (adult) (pediatric); M54.9 Dorsalgia, unspecified; D64.9 Anemia, unspecified; G93.9 Disorder of brain, unspecified; E66.9 Obesity, unspecified; Z68.32 Body mass index [BMI] 32.0-32.9, adult; Z98.42 Cataract extraction status, left eye; Z98.41 Cataract extraction status, right eye; Z95.2 Presence of prosthetic heart valve; Z88.8 Allergy status to other drugs, medicaments and biological substances; Z91.013 Allergy to seafood; Z82.49 Family history of ischemic heart disease and other diseases of the circulatory system; Z79.82 Long term (current) use of aspirin; Z79.899 Other long term (current) drug therapy

== ENCOUNTER 2018-09-14 12:35 | Inpatient (IN) | payer MEDICARE, OTHER ==
[2018-09-14] VITALS (14 sets, daily range): BP systolic 88–126; BP diastolic 44–78
[~2018-09-14] VITALS: Ht 180.3 cm; Wt 113.4 kg
--- NOTE | ~2018-09-14 | CON ---
[address] [address] CONSULTATION Name: ROMINA CARDONA Room: [address] IN ..#: [id number] Admission: 09/14/18 Attend Phys: Janine Witt Discharge: 09/21/18 Date of : 45 Report #: [id number] THIS REPORT FOR: //name// CC: Gab Murphy DATE OF SERVICE: 09/15/2018 REASON FOR CONSULTATION: Melena. IMPRESSION: 1. Melena associated with acute anemia. 2. Chronic atrial fibrillation with recent introduction of Xarelto, exacerbating. 3. Chronic kidney disease, stage 4. 4. Personal history of colon polyps. 5. History of previous heart valve replacement. RECOMMENDATIONS: 1. We will proceed with upper endoscopy today. I have discussed the nature, risks, benefits and alternatives of the procedure with the patient as well and he is agreeable to the same. 2. Further recommendation will made thereafter. HISTORY OF PRESENT ILLNESS: The patient is a very pleasant 73-year-old white male with history of hypertension, hyperlipidemia and a previous heart valve replacement, who was admitted to the hospital with complaints of melena with associated acute anemia. He had recently been placed on some Xarelto and shortly thereafter, started having problem with black tarry stools associated with lightheadedness and dizziness. He has history of problems with iron-deficiency anemia, for which he has had previous iron infusions in the past and is followed by Dr. Diallo for the same. He has undergone endoscopic studies of his upper and lower GI tract in the past, last of which were performed by me back in 12/2016. At that time, it was being done for the iron-deficiency anemia and findings at that time revealed some mild erosive gastritis, which was negative for H. pylori and multiple colon polyps, a total of 10, which were all excised and treated as precancerous. He also had a moderate amount of diverticulosis. He has no complaints at this point in time, other than lightheadedness, dizziness and fatigue. He is admitted to the hospital for further evaluation [place] [address] CONSULTATION Name: ROMINA CARDONA Room: [address]#: [id number] Admission: 09/14/18 Attend Phys: Janine Witt Discharge: 09/21/18 Date of : 45 Report #: [id number] I am waiting to look at his history and physical to give more information. ALLERGIES: SHELLFISH. MEDICATIONS AT HOME: Include citalopram, lovastatin, albuterol, clonazepam, torsemide, gabapentin, Singulair, potassium, Combivent, Xalatan, Zestril and recently Xarelto. PAST MEDICAL AND SURGICAL HISTORY: Remarkable for hypertension, hyperlipidemia, COPD, anxiety and depression. He has had previous bilateral hip replacement. He has had only one kidney. He has had previous tonsillectomy. He has had cataract extraction with intraocular lens implants, aortic valve replacement with bovine tissue. 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 He has had back fusion, trigger finger release and spinal cord stimulator. SOCIAL HISTORY: The patient does not smoke or drink. FAMILY HISTORY: Negative. PHYSICAL EXAMINATION: GENERAL: Pleasant 73-year-old gentleman who is very anxious. CARDIOPULMONARY EXAMINATION: Revealed a regular rate and rhythm. LUNGS: Clear. ABDOMEN: Soft and not tender. No rebound or guarding was noted. LABORATORY DATA: His hemoglobin on 09/06/2018 was 10.9 and as of today, it is down to 7.5. His white count is 6.8, hemoglobin 14.9. His sodium is 134, potassium is 4.0, chloride 101, bicarbonate is 24, his BUN is 70 and creatinine is 2.7 for GFR of only 23. Total bilirubin 0.2, alkaline phosphatase is 62, AST is 10 and ALT 15. Albumin is 2.5. DISCUSSION: At the present time, the patient has had some overt melena. We will proceed with upper endoscopy at this point in time and if this turned out to be negative, a colonoscopy prior to his scheduling for small bowel capsule study. I have discussed these plans with the patient as well and he is agreeable to the same. By: 1950 [id number] Ferreira DO /nt
--- NOTE | ~2018-09-14 | PROC ---
[address] [address] PROCEDURE REPORT Name: ROMINA CARDONA Room: [address] IN ..#: [id number] Admission: 09/14/18 Attend Phys: Janine Witt Discharge: 09/21/18 Date of : 45 Report #: [id number] THIS REPORT FOR: //name// For GI report, please see the Provation report in Perceptive 7 content. By: [id number] Records Staff PATITO /DAVID
--- NOTE | ~2018-09-14 | PROC ---
[address] [address] PROCEDURE REPORT Name: ROMINA CARDONA Room: [place] [address] ADM IN .R.#: [id number] Admission: 09/14/18 Attend Phys: Janine Witt Discharge: Date of : 45 Report #: [id number] THIS REPORT FOR: //name// For GI report, please see the Provation report in Perceptive 7 content. By: [id number] Records Staff PATITO /DAVID
[~2018-09-14 12:35] MED LIST changes: +DEMADEX20 MG PO; +LISINOPRIL5 MG PO; +XARELTO15 MG PO
[2018-09-14 14:43] LABS: HEMATOCRIT 24.5 % (42.0-52.0); HEMOGLOBIN 8.3 gm/dL (14.0-18.0); MCH 29.6 pg (26.0-34.0); MCHC 33.7 g/dL (28.0-37.0); MPV 9.2 fl. (7.2-11.1); RBC 2.79 mil/uL (4.50-6.00); RDW-CV 17.8 % (10.5-14.5); WBC 6.6 thou/uL (4.0-11.0)
[2018-09-14 14:52] LABS: CALCIUM 9.2 mg/dL (8.5-10.1); CREATININE 2.4 mg/dL (0.6-1.3); POTASSIUM 3.8 mmol/L (3.5-5.1)
[2018-09-14 14:53] LABS: APTT 27.7 Seconds (25.0-31.3); PROTIME 10.6 Seconds (9.20-11.50)
[2018-09-14 14:56] LABS: ALBUMIN 2.9 g/dL (3.4-5.0); TOTAL BILIRUBIN 0.3 mg/dL (<0.1-1.0); TOTAL PROTEIN 6.6 g/dL (6.4-8.2)
--- NOTE | 2018-09-14 16:38 | TEE ---
[place] [address] TRANSESOPHAGEAL ECHOCARDIOGRAM Name: DULCEROMINA L Room: [address] IN [facility]#: [id number] Admission: 09/14/18 Attend Phys: Tobi Fernandez, Discharge: Date of : 45 Date of Service: 09/14/18 1638 Report #: [id number] THIS REPORT FOR: //name// APPROVED REPORT Study performed: 09/14/2018 14:38:32 EXAM: Transesophageal Echocardiogram Patient Location: Out-Patient Status: routine BSA: 2.26 HR: 72 bpm BP: 120/76 mmHg Rhythm: Atrial Fibrillation Other Information Study Quality: Fair Technically limited study due to off axis imaging. Indications Atrial Fibrillation Echo Enhancing Agent Indication: Rule out Shunt Agent(s) / Amount(s) Used: Agitated Saline 10 cc Procedure After obtaining informed consent, patient underwent transesophageal echo in the Ophthalmology Assistant Holding. Type of Sedation : Conscious Sedation Sedation was administered by Abbi Mcneill. Sedation start time: 1531 Case end Time: 154 Sedation was achieved intravenously with: Versed (5) Fentanyl (100) Transesophageal probe was inserted and advanced into esophagus without difficulty by Tobi Fernandez MD, FACC. Echo enhancement indication: R/O Septal defect. Echo enhancement agent administered: Agitated Saline The JAMES was performed without complications. Synchronized Cardioversion acheived with 360 Joules after 1 attempt(s). Rhythm following Synchronized Cardioversion: Normal Sinus Rhythm Throughout the procedure, the blood pressure, pulse oximetry, cardiac rhythm, [place] [address] TRANSESOPHAGEAL ECHOCARDIOGRAM Name: ROMINA CARDONA Room: [address]#: [id number] Admission: 09/14/18 Attend Phys: Tobi Fernandez, Discharge: Date of : 45 Date of Service: 09/14/18 1638 Report #: [id number] The patient tolerated the procedure without adverse effects. Recovery from conscious sedation was uneventful and vital signs were stable. Left Ventricle The left ventricle is normal size. Mild concentric left ventricular hypertrophy. The left ventricular systolic function is normal. LVEF is 55-60%. Right Ventricle The right ventricle is normal size. The right ventricular systolic function is normal. Atria Left atrium is mildly dilated. No thrombus is visualized in the left atrium or appendage. Interatrial septum is intact without evidence of ASD or PFO. The right atrium size is normal. Aortic Valve Bioprosthetic aortic valve is present. Mitral Valve Moderate mitral annular calcification. Mild mitral regurgitation. Tricuspid Valve The tricuspid valve is normal in structure. Pulmonic Valve Pulmonic valve is not visualized. <Conclusion> The left ventricle is normal size. Mild concentric left ventricular hypertrophy. The left ventricular systolic function is normal. LVEF is 55-60%. Interatrial septum is intact without evidence of ASD or PFO. Bioprosthetic aortic valve is present. Left atrium is mildly dilated. No thrombus is visualized in the left atrium or appendage. <ELECTRONICALLY SIGNED> By: Tobi Fernandez MD, FACC 09/14/18 1638 1638 1638 Tobi Fernandez MD, FACC /INF
--- NOTE | 2018-09-14 16:44 | EKG ---
[place] [address] ELECTROCARDIOGRAM REPORT Name: ROMINA CARDONA Room: [place] [address] ADM IN M.R.#: [id number] Admission: 09/14/18 Attend Phys: Tobi Fernandez MD Discharge: Date of : 45 Report #: [id number] THIS REPORT FOR: //name// [facility] Test Date: 2018-09-14 Test Time: 14:49:26 Pat Name: ROMINA CARDONA Department: Room: [facility] Gender: M Cloth Drier: : 1945 Requested By: Tobi Fernandez Order Number: [id number] Reading MD: Yury Robledo Measurements Intervals [place] Rate: 70 P: [place]: QRS: -28 QRSD: 121 T: 80 QT: 398 QTc: 430 Interpretive Statements Atrial fibrillation Left bundle branch block Compared to ECG 09/07/2018 08:44:11 Q waves no longer present Electronically Signed On 09-14-2018 16:44:06 MOTOR RUNNER by Yury Robledo [email or web address] <ELECTRONICALLY SIGNED> By: Yury Robledo MD, [facility] 09/14/18 1644 1449 1449 Yury Robledo MD, FACC /EPI
--- NOTE | 2018-09-14 17:47 | H ---
[place] [address] HISTORY AND PHYSICAL Name: ROMINA CARDONA Dalila Room: [address] IN .R.#: [id number] Admission: 09/14/18 Attend Phys: Tobi Fernandez MD Discharge: Date of : 45 Report #: [id number] THIS REPORT FOR: //name// CC: Gab Alfonso DATE OF SERVICE: 09/14/2018 INDICATION: Acute on chronic diastolic heart failure, dyspnea on exertion, persistent atrial fibrillation and melena. HISTORY OF PRESENT ILLNESS: The patient is a very pleasant 73-year-old gentleman who presented for elective cardioversion. He complains of melena for the past several days. His anticoagulation was discontinued 3 days ago. He continues to have dyspnea. He presents and is still in atrial fibrillation with a controlled ventricular response rate. A transesophageal echocardiogram showed no evidence of a thrombus. He was cardioverted to sinus rhythm. He has a history of severe aortic stenosis, status post bioprosthetic aortic valve replacement in 2007. At that time, he did not have any significant coronary artery disease. By noninvasive stress testing recently, he has no evidence of ischemia and normal LV systolic function. By echocardiogram, he has evidence of diastolic dysfunction. PAST MEDICAL HISTORY: 1. Aortic valve replacement for severe aortic stenosis with a bioprosthetic aortic valve. 2. Hypertension. 3. Hyperlipidemia. 4. Sleep apnea. 5. Chronic renal insufficiency, stage 3. 6. Chronic obstructive pulmonary disease. 7. Spinal surgery. PAST SURGICAL HISTORY: 1. Carpal tunnel surgery. 2. Hip replacement. 3. Ulnar nerve repair. 4. Status post neurostimulator implantation. HOME MEDICATIONS: Lisinopril, albuterol , Combivent inhaler, Singulair, Lipitor, Celexa, Klonopin, Neurontin, hydrocodone, Singulair, potassium, torsemide, and [place] [address] HISTORY AND PHYSICAL Name: ROMINA CARDONA Room: [address] IN [facility].#: [id number] Admission: 09/14/18 Attend Phys: Tobi Fernandez MD Discharge: Date of : 45 Report #: [id number] ALLERGIES: TO SHELLFISH AND METOPROLOL. FAMILY HISTORY: Positive for heart disease in the patient's father. SOCIAL HISTORY: The patient is . He lives here with his in [place]. He is a nonsmoker. He does not drink alcohol. REVIEW OF SYSTEMS: NEUROLOGIC: He denies convulsions, seizures or focal paralysis. He does have some balance issues. In general, there is no explained weight loss or fevers. RESPIRATORY: He denies cough. He does have dyspnea on exertion without significant orthopnea. CARDIOVASCULAR: As outlined above. In addition, he denies chest pain. He has occasional peripheral edema. ENDOCRINE: He denies diabetes or thyroid disease. GASTROINTESTINAL: He has had melena without hematemesis. He denies nausea or vomiting. GENITOURINARY: No dysuria or hematuria. HEMATOLOGIC AND LYMPHATIC: He has recent onset anemia. There is no history of blood clots or cancer. ALLERGY AND IMMUNOLOGIC: He has medical allergies as outlined above. PSYCHIATRIC: No depression or anxiety. MUSCULOSKELETAL: Arthritis without connective tissue diseases. SKIN: No recent rashes, hives or chronic skin conditions. EYES: He has no acute loss in vision. EARS, NOSE, MOUTH, THROAT: He denies decreased hearing or epistaxis. PHYSICAL EXAMINATION: VITAL SIGNS: Stable. Blood pressure is 128/72, pulse is irregular and in the 80s. GENERAL: He is a moderately obese, pleasant white male, in no distress. Mood and affect appropriate. HEENT: Extraocular muscles intact. Mucous membranes are moist. NECK: Shows no jugular venous distention. There are no carotid bruits. CHEST: Reveals clear lung roman without wheezes or rales. CARDIAC: Reveals a slightly irregular rhythm with a grade 1-2/6 systolic murmur heard best at the right upper sternal border. I do not appreciate a gallop. ABDOMEN: Reveals normal bowel sounds. The abdomen is soft, nontender. EXTREMITIES: Shows trace ankle edema. Peripheral pulses 2+ and palpable. SKIN: Warm and dry. IMPRESSION AND PLAN: 1. Atrial fibrillation status post cardioversion. The patient is having a lot of premature atrial contractions at this time. We will admit for sotalol loading. I am holding anticoagulation as he [place] [address] HISTORY AND PHYSICAL Name: ROMINA CARDONA Room: [address] IN [facility]#: [id number] Admission: 09/14/18 Attend Phys: Tobi Fernandez MD Discharge: Date of : 45 Report #: [id number] gastrointestinal bleeding. We will plan serial EKGs while we sotalol load. 2. Hypercoagulable due to atrial fibrillation. The patient is currently having what appears to be gastrointestinal bleeding. We are not anticoagulating at this time. 3. Acute on chronic diastolic heart failure with slight volume overload. The patient will receive his home diuretics with the addition of IV diuresis as needed. 4. Melena with acute anemia. The patient's hemoglobin is presently 8.3. No need for transfusion at this time. We will monitor on telemetry and consult Gastroenterology for further evaluation. 5. Hypertension. Blood pressure adequately controlled at present. 6. Status post bioprosthetic aortic valve replacement. Valve functioning normally on echocardiogram. 7. Hyperlipidemia. Continue current statin agent. 8. Chronic back pain, presently stable. 9. Anemia, likely due to gastrointestinal bleeding. 10. 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 <ELECTRONICALLY SIGNED> By: Tobi Fernandez MD, FACC 09/14/18 1747 1715 1742[facility] Center[facility] Fernandez MD, FACC /nt
[2018-09-15] VITALS (7 sets, daily range): BP systolic 95–123; BP diastolic 55–85
--- NOTE | 2018-09-15 02:23 | NUR ---
ASSUMED CARE OF PT AT 1900. PT IS ALERT AND ORIENTED. VSS. PERRLA. NO COMPLAINTS OF PAIN. STEADY GAIT. PT IS IN SINUS RYTHM ON THE TELEMETRY. PT IS RESTING COMFORTABLY IN BED. RESPIRATIONS ARE EVEN AND NONLABORED. WILL CONTINUE TO MONITOR PT.
[2018-09-15 04:34] LABS: HEMATOCRIT 22.4 % (42.0-52.0); HEMOGLOBIN 7.5 gm/dL (14.0-18.0); MCH 29.7 pg (26.0-34.0); MCHC 33.5 g/dL (28.0-37.0); MCV 88.8 fL (80.0-100.0); MPV 9.9 fl. (7.2-11.1); RBC 2.53 mil/uL (4.50-6.00); RDW-CV 18.1 % (10.5-14.5); WBC 6.8 thou/uL (4.0-11.0)
[2018-09-15 04:52] LABS: ALBUMIN 2.5 g/dL (3.4-5.0); CALCIUM 8.5 mg/dL (8.5-10.1); CREATININE 2.7 mg/dL (0.6-1.3); TOTAL BILIRUBIN 0.2 mg/dL (<0.1-1.0); TOTAL PROTEIN 5.9 g/dL (6.4-8.2)
[2018-09-15 13:05] LABS: HEMATOCRIT 24.4 % (42.0-52.0); HEMOGLOBIN 8.2 gm/dL (14.0-18.0); MCH 29.7 pg (26.0-34.0); MCHC 33.4 g/dL (28.0-37.0); MCV 88.9 fL (80.0-100.0); MPV 9.2 fl. (7.2-11.1); RBC 2.75 mil/uL (4.50-6.00); RDW-CV 17.7 % (10.5-14.5); WBC 7.3 thou/uL (4.0-11.0)
--- NOTE | 2018-09-16 02:06 | NUR ---
ASSUMED CARE OF PT AT 1900. PT IS ALERT AND ORIENTED. VSS. PERRLA. PT IS UP AD ALBERT. PT RECIEVED 1 UNIT OF BLOOD AND TOLERATED WELL. PT IS IN SINUS RYTHM ON THE TELEMETRY. PT IS SLEEPING QUIETLY IN BED. RESPIRATIONS ARE EVEN AND NONLABORED. WILL CONTINUE TO MONITOR PT.
[2018-09-16 04:40] VITALS: BP 93/56
[2018-09-16 04:56] LABS: HEMATOCRIT 24.3 % (42.0-52.0); HEMOGLOBIN 8.3 gm/dL (14.0-18.0); MCH 29.6 pg (26.0-34.0); MCHC 33.9 g/dL (28.0-37.0); MCV 87.3 fL (80.0-100.0); MPV 9.5 fl. (7.2-11.1); RBC 2.79 mil/uL (4.50-6.00); RDW-CV 17.3 % (10.5-14.5)
[2018-09-16 08:00] VITALS: BP 153/83
[2018-09-16 12:00] VITALS: BP 118/72
[2018-09-16 12:39] LABS: HEMATOCRIT 26.1 % (42.0-52.0); HEMOGLOBIN 8.8 gm/dL (14.0-18.0)
--- NOTE | 2018-09-16 12:43 | EKG ---
[place] [address] ELECTROCARDIOGRAM REPORT Name: ROMINA CARDONA Room: [place] [address] ADM IN M.R.#: [id number] Admission: 09/14/18 Attend Phys: Tobi Fernandez MD Discharge: Date of : 45 Report #: [id number] THIS REPORT FOR: //name// [facility] Test Date: 2018-09-16 Test Time: 08:22:12 Pat Name: ROMINA CARDONA Department: Room: [place] [address] Gender: M Wharf Operator: [facility] : 1945 Requested By: Tobi Fernandez Order Number: [id number] Reading MD: Mark Jimenez Measurements Intervals [place] Rate: 68 P: 14 RI: 317 QRS: -18 QRSD: 127 T: 52 QT: 431 QTc: 459 Interpretive Statements Sinus rhythm Atrial premature complex Prolonged RI interval Left bundle branch block Compared to ECG 09/14/2018 14:49:26 Atrial premature complex(es) now present First degree AV block now present Atrial fibrillation no longer present Electronically Signed On 09-16-2018 12:43:22 WIRELESS NETWORK ENGINEER by Mark Jimenez [email or web address] <ELECTRONICALLY SIGNED> By: Mark Jimenez MD, FAC 09/16/18 1243 0822 0822 Mark Jimenez MD, FAC /EPI
[2018-09-16 12:47] LABS: CALCIUM 8.7 mg/dL (8.5-10.1); CREATININE 2.8 mg/dL (0.6-1.3); POTASSIUM 4.2 mmol/L (3.5-5.1)
--- NOTE | 2018-09-16 15:55 | NUR ---
CHANGE OF SHIFT, BEDSIDE REPORT GIVEN PATIENT SEEN UP IN CHAIR WATCHING TV ASSUMED PATIENT CARE
[2018-09-16 16:00] VITALS: BP 130/67
[2018-09-16 19:35] VITALS: BP 119/74
--- NOTE | 2018-09-16 22:06 | NUR ---
ASSUMED CARE OF PT AT 1900. PT IS ALERT AND ORIENTED. VSS. STEADY GAIT. PERRLA. PT IS UP AD ALBERT. PT REPORTED SOA AT THE BEGINNING OF SHIFT. PT ALSO REPORTED ANKLES MORE SWOLLEN THAN NORMAL. PT WAS GIVEN 40 MG OF LASIX AND PT HAS HAD 1550 OF URINE OUT SO FAR SINCE 1999. PT REPORTS THAT IT IS MUCH EASIER TO BREATH AND THAT HE IS VERY COMFORTABLE AT THIS TIME. PT HAS A 1ST DEGREE BLOCK ON THE TELEMETRY. PT IS SLEEPING QUIETLY AT THIS TIME. RESPIRATIONS ARE EVEN AND NONLABORED. WILL CONTINUE TO MONITOR PT.
[2018-09-17] VITALS: BP 131/73
[2018-09-17 04:00] VITALS: BP 118/68
[2018-09-17 05:01] LABS: ABSOLUTE BASOPHILS 0.1 thou/uL (0.0-0.2); ABSOLUTE EOSINOPHILS 0.6 thou/uL (0.0-0.7); ABSOLUTE LYMPHOCYTES 1.6 thou/uL (0.8-5.3); ABSOLUTE MONOCYTES 0.7 thou/uL (0.0-1.2); ABSOLUTE NEUTROPHILS 4.5 thou/uL (1.6-8.1); BASOPHILS 1.2 %; EOSINOPHILS 7.6 %; HEMATOCRIT 25.1 % (42.0-52.0); HEMOGLOBIN 8.5 gm/dL (14.0-18.0); LYMPHOCYTES 21.2 %; MCH 29.4 pg (26.0-34.0); MCHC 33.8 g/dL (28.0-37.0); MONOCYTES 9.3 %; MPV 9.8 fl. (7.2-11.1); NUCLEATED RBCS 0 /100WBC; PLATELET COUNT* 165 thou/uL (150-400); POLYS 60.7 %; RBC 2.88 mil/uL (4.50-6.00); RDW-CV 17.6 % (10.5-14.5); WBC 7.4 thou/uL (4.0-11.0)
[2018-09-17 05:28] LABS: CALCIUM 8.5 mg/dL (8.5-10.1); CREATININE 2.7 mg/dL (0.6-1.3); POTASSIUM 4.4 mmol/L (3.5-5.1)
[2018-09-17 08:00] VITALS: BP 141/76
[2018-09-17 12:00] VITALS: BP 138/82
[2018-09-17 16:00] VITALS: BP 132/78
--- NOTE | 2018-09-17 19:32 | NUR ---
ASSUMED PT CARE AT 0730, FULL ASSESMENT DONE CHARTED. PT A/O X4, ANXIOUS AT TIMES. PT STATES THIS AM HE FEELS CONSTIPATED, MIRALAX STARTED, PT ABLE TO HAVE BM THIS EVENING, SAMPLE SENT FOR OCCULT STOOL. PT REPORTS SOA WHEN AMBULATING AND IT TAKING SOME TIME TO RECOVER, SATURATION IN UPPER 90'S ON RA, VSS, SR/1STABV/BBB ON THE MONITOR. PT UP AD ALBERT, GOOD APITITE, PLAN FOR COLONOSCOPY ON TUESDAY. REPORT GIVEN TO DASIA ARREDONDO
[2018-09-17 19:54] VITALS: BP 114/60
[2018-09-18] VITALS: BP 119/65
--- NOTE | 2018-09-18 01:51 | NUR ---
ASSUMED PT KEY PERSON EAT 1930, PT IS A&OX4, TRACING NSR IWHT A 1DAVB ON THE MONITOR, ON RA SATTING MID TO HIGH 90'S. PT DENIES ANY PAIN OR NEEDS AT THIS TIME. PT IS STARTED ON CL IN THE AM FOR PENDING COLONSCOPY. + OCCULT BLOOD. BED IN LOW POSITION, CALL LIGHT IN REACH. HOURLY ROUNDING COMPLETED FOR PT SAFETY.
[2018-09-18 03:53] LABS: HEMATOCRIT 24.7 % (42.0-52.0); HEMOGLOBIN 8.4 gm/dL (14.0-18.0); MCH 29.7 pg (26.0-34.0); MCHC 33.9 g/dL (28.0-37.0); MCV 87.6 fL (80.0-100.0); NUCLEATED RBCS 0 /100WBC; PLATELET COUNT* 172 thou/uL (150-400); RBC 2.82 mil/uL (4.50-6.00); RDW-CV 17.6 % (10.5-14.5); WBC 6.9 thou/uL (4.0-11.0)
[2018-09-18 04:00] VITALS: BP 126/66
[2018-09-18 04:15] LABS: ALBUMIN 2.7 g/dL (3.4-5.0); CALCIUM 8.5 mg/dL (8.5-10.1); CREATININE 2.7 mg/dL (0.6-1.3); POTASSIUM 3.8 mmol/L (3.5-5.1); TOTAL BILIRUBIN 0.3 mg/dL (<0.1-1.0); TOTAL PROTEIN 6.4 g/dL (6.4-8.2)
--- NOTE | 2018-09-18 05:16 | NUR ---
PT CARE ASSUMED AT 2AM. SAT MAINTAINED IN CPAP DURING THE NIGHT. CALL LIGHT WITHIN REACH AND BED IN LOW POSITION. CALLS APPROPRIATELY WHEN NEEDED. C/O PAIN MEDICATION GIVEN PER EMAR. PT STATES SOB WITH EXERTION. HOURLY ROUNDING DONE FOR PT SAFETY. ALERT AND ORIENTED X4.
[2018-09-18 05:25] LABS: ABSOLUTE BASOPHILS 0.1 thou/uL (0.0-0.2); ABSOLUTE EOSINOPHILS 0.8 thou/uL (0.0-0.7); ABSOLUTE LYMPHOCYTES 1.5 thou/uL (0.8-5.3); ABSOLUTE MONOCYTES 0.3 thou/uL (0.0-1.2); ABSOLUTE NEUTROPHILS 4.1 thou/uL (1.6-8.1); PLATELET ESTIMATE ADEQUATE
[2018-09-18 05:26] LABS: TOXIC GRANULATION 1+
[2018-09-18 07:53] VITALS: BP 116/61
--- NOTE | 2018-09-18 10:13 | NUR ---
Pt is A&O. Resides at home with family. Known to this CM from previous hospital stay. Pt is independent. Has a cane and walker that he can use if needed, Pt also has a shower chair. Pt has a cpap at home through [employer], no home o2. No hx of HH or SNF. Goal is home at sd. Following.
--- NOTE | 2018-09-18 12:41 | NUR ---
AASSUMED PT CARE AT 0730 REPORT RECEIVED FROM NURSE. PT IS AOX4 SR 1ST AV BLOCK ON CARDIAC. VSS. PT COMPLAINS OF SOB. NURSE PLACED PT ON 2 LNC. PT FEELS BETTER. PT CONCERNED ABOUT HIS NEED FOR DIURETICS. NURSE GAVE PT MORE INFO ABOUT IT AFTER CLARIFYING WITH DR. PT UNDERSTANDS. IRON GIVEN WELL OTHER MEDICATIONS. BOWEL PREP TO START AT 1300. WILL CONTINUE TO MONITOR PT
--- NOTE | 2018-09-18 13:32 | NUR ---
BOWEL PREP STARTED ON PT AT 1330. \
[2018-09-18 16:30] VITALS: BP 144/75
[2018-09-18 19:50] VITALS: BP 118/74
[2018-09-19] VITALS (7 sets, daily range): BP systolic 116–157; BP diastolic 54–89
--- NOTE | 2018-09-19 03:19 | NUR ---
RECIEVED REPORT AND ASSUMED CARE AT 1900. BAR MACHINE OPERATOR MULTIPLE SPINDLE IN PLACE. VITAL SIGNS ARE STABLE. PT UP ADLIB. PT HAD SOME BACK PAIN 5/10 AND PRN MEDS GIVEN ORDERED. ASSESSMENT COMPLETED AND DISCUSSED PLAN OF CARE AND PT UNDERSTAND. NPO SINCE 0000 FOR PROCEDURE. BED LOCKED AND CALL LIGHT WITHIN REACH. FALL PRECAUTIONS IN PLACE. HOURLY ROUNDING DONE AND ALL NEEDS MET. NURSING WILL CONTINUE TO MONITOR.
[2018-09-19 05:24] LABS: HEMATOCRIT 26.7 % (42.0-52.0); NUCLEATED RBCS 0 /100WBC; WBC 7.7 thou/uL (4.0-11.0)
[2018-09-19 05:26] LABS: CALCIUM 8.9 mg/dL (8.5-10.1); CREATININE 2.1 mg/dL (0.6-1.3); HEMOGLOBIN 9.3 gm/dL (14.0-18.0); MCH 30.9 pg (26.0-34.0); MCHC 34.9 g/dL (28.0-37.0); MCV 88.5 fL (80.0-100.0); MPV 9.8 fl. (7.2-11.1); PLATELET COUNT* 198 thou/uL (150-400); POTASSIUM 3.8 mmol/L (3.5-5.1); RBC 3.02 mil/uL (4.50-6.00); RDW-CV 17.6 % (10.5-14.5)
[2018-09-19 07:18] LABS: ABSOLUTE EOSINOPHILS 0.7 thou/uL (0.0-0.7); ABSOLUTE LYMPHOCYTES 2.4 thou/uL (0.8-5.3); ABSOLUTE MONOCYTES 0.5 thou/uL (0.0-1.2); ABSOLUTE NEUTROPHILS 4.2 thou/uL (1.6-8.1); ANISOCYTOSIS 1+; ATYPICAL LYMPHS 5 %; METAMYELOCYTES 1 %; PLATELET ESTIMATE ADEQUATE
--- NOTE | 2018-09-19 11:50 | NUR ---
SKILLED INPATIENT REHAB CONSULT ACKNOWLEDGED AND RECEIVED BY DR. OATES AND INSERT MOLDING OPERATOR. AWAITING PT/OT/SP EVALUATIONS FOR CONSIDERATION. WILL CONTINUE TO FOLLOW. THANK YOU
[2018-09-20] VITALS (7 sets, daily range): BP systolic 106–154; BP diastolic 55–85
--- NOTE | 2018-09-20 04:52 | NUR ---
ASSUMED CARE OF PT AFTER REPORT AT 1930. PT A&OX4. VSS. PHYSICAL ASSESSMENT COMPLETED AND CHARTED. PT ON RA/CPAP AT NIGHT WITH O2 SAT OF 95%. PT TRACING SR/1ST DEG/BBB ON TELE. PT UP ADLIB TO RESTROOM. PT COMPLAINED OF CHRONIC BACK & NECK PAIN-PAIN MEDS GIVEN PER NOV. PT RESTED WELL ON BED. HOURLY ROUNDIN GOBSERVED. HS REST & SAFETY GOALS ACHIEVED. CALL LIGHT WITHIN REACH. BED IN LOW POSITION.
[2018-09-20 04:59] LABS: HEMATOCRIT 23.4 % (42.0-52.0); HEMOGLOBIN 7.9 gm/dL (14.0-18.0); MCH 29.8 pg (26.0-34.0); MCHC 33.6 g/dL (28.0-37.0); MCV 88.5 fL (80.0-100.0); MPV 9.4 fl. (7.2-11.1); RBC 2.64 mil/uL (4.50-6.00); RDW-CV 17.7 % (10.5-14.5); WBC 5.9 thou/uL (4.0-11.0)
[2018-09-20 05:12] LABS: CALCIUM 8.2 mg/dL (8.5-10.1); CREATININE 2.1 mg/dL (0.6-1.3); POTASSIUM 3.7 mmol/L (3.5-5.1)
--- NOTE | 2018-09-20 10:00 | NUR ---
REC'D REPORT FROM NOC RN, ASSUMED CARE OF PT APPROX 0730. A&OX4. APPEARS SOA, PT REPORTS THIS IS HIS BASELINE. VS OBTAINED. SWEATER OPERATOR IN BIPIN, , 1D BBB. O2 SATS 97% RA. C/O PAIN 5/10 IN BACK, NECK. PRN PAIN MED GIVEN. CALL LIGHT IN REACH. HOURLY ROUNDING FOR SAFETY AND PT NEEDS.
--- NOTE | 2018-09-20 12:00 | NUR ---
SPOKE WITH MATT/REHAB ADMISSIONS, AWAITING THERAPY EVALS TO DETERMINE ELIGIBILITY. DR KUMAR PREFERS PT GO TO REHAB AT [facility]. ORDERS ON CHART. MATT WILL CONTACT CM ONCE DECISION MADE.
--- NOTE | 2018-09-20 15:10 | NUR ---
Rehab can accept Pt tomorrow. Updated nurse
--- NOTE | 2018-09-20 15:17 | NUR ---
PT HAS BEEN PARTICIPATING WELL IN THERAPIES AND IS MEDICALLY STABLE PER PHYSICIAN FOR TRANSFER TO INPATIENT REHAB. PT WILL BE ACCEPTED TO INPATIENT REHAB WITH TRANSFER TO THE UNIT 09/21/18 IN THE AM. THANK YOU
[2018-09-20 18:30] LABS: HEMATOCRIT 27.7 % (42.0-52.0); HEMOGLOBIN 9.3 gm/dL (14.0-18.0)
[2018-09-21] VITALS: BP 129/75
[2018-09-21 04:00] VITALS: BP 150/84
--- NOTE | 2018-09-21 06:03 | NUR ---
VITALS WNL. SEE MAR. SEE CHARTING. HOURLY ROUNDING FOR SAFETY.
--- NOTE | 2018-09-21 08:11 | NUR ---
Pt to dc to acute rehab today, Cm will fax dc orders when available. Awaiting room assignment. CM to update Pt's family.
--- NOTE | 2018-09-21 09:00 | NUR ---
REC'D REPORT FROM NOC RN, ASSUMED CARE OF PT APPROX 0730. ORIENTED X 4 WITH FLAT AFFECT. KEG FILLER IN PLACE, SR, BBB, 1ST DEGREE BLOCK. O2 SATS 97% ON ROOM AIR. ASSESSMENT COMPLETE. MEDS PER NOV. CALL LIGHT IN REACH. HOURLY ROUNDING FOR SAFETY AND PT NEEDS.
[2018-09-21] MEDS ORDERED: SORINE 80 MG TA80 M1 PO (09:33)
--- NOTE | 2018-09-21 10:35 | NUR ---
PT WITH COMPLETE TRANSFER ORDER TO INPATIENT REHAB AT [facility]. PT IV LEFT IN PLACE. INFORMIX DEVELOPER REMOVED. PT IN POSSESSION OF ALL BELONGINGS WHEN TRANSPORTED OFF THE UNIT VIA WC AND NURSING STAFF. REPORT CALLED TO EKG/ECG TECHNICIAN AT 1015.
--- NOTE | 2018-09-21 15:08 | PATH ---
[facility] [address] [place] [address] PATHOLOGY RPT PROCEDURE Name: CARLITOS COCHRAN Room: [address] IN .R.#: [id number] Admission: 09/14/18 Date of : 45 Discharge: 09/21/18 Report #: [id number] Path Case #: [id number] [facility] Accession Number: [id number] . 01 Material submitted: . DESCENDING COLON POLYP . 01 Clinical history: . None provided . 02 Diagnosis: Colon, descending colon polyp: - Tubular adenoma, negative for high-grade dysplasia. (REJI:dustin; 09/20/2018) MBR/09/20/2018 . 02 Electronically signed: . Arnoldo Wong MD, Pathologist NPI- [id number] . 01 Gross description: . Received in formalin labeled "Carlitos Cochran descending colon polyp," is a single segment of talbot soft tissue measuring 0.2 cm in maximum dimension. The specimen is entirely submitted in cassette A1. (TSD; 09/19/2018) TOB/TOB . 02 Pathologist provided ICD-10: D12.4 . 02 CPT . [id number] Specimen Comment: A courtesy copy of this report has been sent to Specimen Comment: [phone], , , . Specimen Comment: Report sent to ,DR KUMAR,DR LAROSE / DR BECKER Specimen Comment: A duplicate report has been generated due to demographic updates. Performed at: [address], [place] [address] MD Jerry Carson MD Phone: [phone] Performed at: [facility] [address], [place], [place] [id number] MD Arnoldo Wong MD Phone: [phone]
== END 2018-09-21 10:35 | DRG 377 ==
LOC: M.CL 12:35 → M.2W 15:52 → M.TBA-ER 15:52 → M.2W 17:14
PROVIDERS: Internal Medicine Cardiovascular Disease; Internal Medicine Gastroenterology; ADMIT Internal Medicine
PROC: B24BZZ4 Ultrasonography of Heart with Aorta, Transesophageal (ICD-10-PCS; principal; 2018-09-14)
PROC: 0DJ08ZZ Inspection of Upper Intestinal Tract, Via Natural or Artificial Opening Endoscopic (ICD-10-PCS; 2018-09-15)
PROC: 0DBM8ZZ Excision of Descending Colon, Via Natural or Artificial Opening Endoscopic (ICD-10-PCS; 2018-09-19)
PROC: 30233N1 Transfusion of Nonautologous Red Blood Cells into Peripheral Vein, Percutaneous Approach (ICD-10-PCS; 2018-09-20)
DX: K57.31 Diverticulosis of large intestine without perforation or abscess with bleeding (principal); I50.33 Acute on chronic diastolic (congestive) heart failure; N17.0 Acute kidney failure with tubular necrosis; I13.0 Hypertensive heart and chronic kidney disease with heart failure and stage 1 through stage 4 chronic kidney disease, or unspecified chronic kidney disease; N18.4 Chronic kidney disease, stage 4 (severe); D68.59 Other primary thrombophilia; I48.1 Persistent atrial fibrillation; D62 Acute posthemorrhagic anemia; E78.5 Hyperlipidemia, unspecified; J44.9 Chronic obstructive pulmonary disease, unspecified; E87.70 Fluid overload, unspecified; G89.29 Other chronic pain; M54.9 Dorsalgia, unspecified; Z96.643 Presence of artificial hip joint, bilateral; H40.9 Unspecified glaucoma; J45.909 Unspecified asthma, uncomplicated; F29 Unspecified psychosis not due to a substance or known physiological condition; K59.00 Constipation, unspecified; K64.9 Unspecified hemorrhoids; Z95.2 Presence of prosthetic heart valve; Z88.8 Allergy status to other drugs, medicaments and biological substances; Z91.013 Allergy to seafood; Z82.49 Family history of ischemic heart disease and other diseases of the circulatory system; Z98.42 Cataract extraction status, left eye; Z98.41 Cataract extraction status, right eye; Z86.010 Personal history of colon polyps

== ENCOUNTER 2018-09-21 09:55 | Inpatient (IN) | payer MEDICARE, OTHER ==
[~2018-09-21] VITALS: Ht 177.8 cm; Wt 111.1 kg
--- NOTE | ~2018-09-21 | D ---
[facility] [address] [place] [address] DISCHARGE SUMMARY Name: ROMINA CARDONA Room: [address] IN M.R.#: [id number] Admission: 09/21/18 Attend Phys: Nathaly Gutierrez DO Discharge: Date of : 45 Report #: [id number] THIS REPORT FOR: //name// CC: Corey Gutierrez DISCHARGE DIAGNOSIS: Cardiac debility status post atrial fibrillation with cardioversion. DISPOSITION: He is being discharged to home with his , with home health services, nursing, OT and PT. He will follow up with Cardio in 2-3 weeks and his primary care provider in 1 week. Notifications for physician were given. He is on a regular diet. Monitor weight gain. Activity precautions are limitations of a front wheel walker for household and community ambulation. Okay to discharge home on 09/30/2018. MEDICATIONS: Reviewed, reconciled by myself and are available in the MAR. He was given a script for sotalol 80 mg 1 p.o. b.i.d., #60. At the time of this dictation; however, Cardiology may have updated this and addition will be made if needed. DISCHARGE PHYSICAL EXAMINATION: GENERAL: Alert and oriented x 3, stable condition. ABDOMEN: Nontender and nondistended. LUNGS: Symmetrical. Clear to auscultation bilaterally. NEUROLOGIC: His pupils are equal, reactive and his EOMs intact. His cranial nerves 2 through 12 are within normal limits and he is neurologically intact. By: 1202 [id number] Gutierrez DO /nt
--- NOTE | ~2018-09-21 | H ---
[address] [address] HISTORY AND PHYSICAL Name: ROMINA CARDONA Room: [address] IN M.R.#: [id number] Admission: 09/21/18 Attend Phys: Nathaly Gutierrez DO Discharge: Date of : 45 Report #: [id number] THIS REPORT FOR: //name// CC: Corey Gutierrez DATE OF SERVICE: 09/21/2018 [facility] CODE: 09. HISTORY OF PRESENT ILLNESS: This is a 73-year-old male, admitted to inpatient rehabilitation to facilitate safe discharge home, status post acute hospitalization at [facility] starting on 09/14/2018. He has atrial fibrillation, status post AVR with multiple medical comorbidities requiring acute daily medical care. No changes since the preadmission screening. Previous level of function was modified independent to independent with activities of daily living, utilizing a front-wheeled walker. 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 Current level of function is minimum to moderate assistance of 1-2 depending on therapy, activity and time of day. Estimated length of stay is 12-14 days with discharge disposition to the home setting. PLAN OF CARE: Pending. PAST MEDICAL HISTORY: Atrial fibrillation, chronic kidney disease, COPD, dyspnea, hypertension, glaucoma, asthma. Spinal nerve stimulator, trigger finger release, status post AVR, chest pain. PAST SURGICAL HISTORY: Bilateral hip replacements due to DJD, tonsillectomy, bilateral cataracts, aortic valve replacement, spinal cord cyst with removal of that. Right ulnar nerve transfer. No significant changes since the preadmission screening. MEDICATIONS: Reviewed and reconciled by myself and are available in the MAR. ALLERGIES: SHELL FISH AND ATROPINE. SOCIAL HISTORY: No tobacco, alcohol or illicit drug use. FAMILY HISTORY: Cardiac disease. REVIEW OF SYSTEMS: A 14-point review of systems is done and is negative except as mentioned in HPI, specifically no fever, chest pain, shortness of breath, abdominal pain or distention, change in bowel or change in bladder. ASSESSMENT: 1. Cardiac debility with atrial fibrillation, [place] [address] HISTORY AND PHYSICAL Name: ROMINA CARDONA Room: [address] IN [facility].#: [id number] Admission: 09/21/18 Attend Phys: Nathaly Gutierrez DO Discharge: Date of : 45 Report #: [id number] 2. Multiple medical comorbidities requiring acute daily medical care. PLAN: 1. Admission to inpatient rehabilitation to facilitate safe discharge home. 2. PT, OT, case management, nursing and HIMS to make evaluations and recommendations. 3. Plan of care is pending. 4. We will team him weekly. 5. HIMS will follow for medical management. By: 1655 [id number] Gutierrez DO /nt
[~2018-09-21 09:55] MED LIST changes: +SORINE 80 MG TA80 M1 PO
--- NOTE | 2018-09-21 13:11 | NUR ---
73 YEAR OLD MALE PATIENT ADMITTED TO ROOM 235 WITH CARDIAC DEBILITY AND CHF EXACERBATION. ADMISSION CARE TOOL COMPLETED. PT C/O SHORTNESS OF AIR WITH MINIMAL EXERTION. O2 SAT HAS BEEN 96-97% ON ROOM AIR. PT ALSO HAS 2-3+ EDEMA OF FEET AND LOWER LEGS. PLAN OF CARE, THERAPY SCHEDULE AND FALL PRECAUTIONS DISCUSSED WITH PATIENT.
[2018-09-21 16:00] LABS: HEMATOCRIT 28.4 % (42.0-52.0); HEMOGLOBIN 9.5 gm/dL (14.0-18.0); MCH 29.8 pg (26.0-34.0); MCHC 33.5 g/dL (28.0-37.0); MCV 88.9 fL (80.0-100.0); MPV 9.4 fl. (7.2-11.1); RBC 3.19 mil/uL (4.50-6.00); RDW-CV 17.7 % (10.5-14.5); WBC 5.7 thou/uL (4.0-11.0)
--- NOTE | 2018-09-21 18:26 | NUR ---
PT WORKED WITH THERAPIES, NO COMPLAINTS VOICED. RESPIRATORY TREATMENTS RESUMED. FALL PRECAUTIONS AND HOURLY ROUNDING CONTINUE.
[2018-09-21 20:14] VITALS: BP 139/77
[2018-09-22 04:21] LABS: CALCIUM 8.5 mg/dL (8.5-10.1); POTASSIUM 3.9 mmol/L (3.5-5.1)
--- NOTE | 2018-09-22 05:07 | NUR ---
ASSUMED PT CARE AT 1930. PT ALERT AND ORIENTED X4. HX OF CARDIAC DEBILITY AND CHF EXACERBATION, SITTING UP IN CHAIR AT SHIFT CHANGE. 2-3+ EDEMA OF BLE. PT UP TO BATHROOM TO VOID WITH SBA, GAIT BELT AND WALKER. PT ON ROOM AIR OVERNIGHT WHILE WEARING HOME CPAP. BED ALARM ON FOR SAFETY. CALL LIGHT AND FREQUENTLY USED ITEMS WITHIN REACH. HOURLY ROUNDING IN PROGRESS, WILL CONTINUE TO MONITOR.
--- NOTE | 2018-09-22 07:45 | NUR ---
ASSUMED CARE OF PT ASSESSED AND DOCUMENTED. PT IS A&O AND ON ROOM AIR. HE IS ON FALL PRECAUTIONS PER FACILITY PROTOCOL. PT IS AFEBRILE. PT HAS NOTED EDEMA IN BLLE AND BL ANKELS. BED IS IN LOW POSITION CALL LIGHT IS IN REACH. WM.
[2018-09-22 08:32] VITALS: BP 144/78
--- NOTE | 2018-09-22 09:58 | NUR ---
CALLED PHARMACY FOR CITALAPRAM. MYRTLE WILL BRING UP.
--- NOTE | 2018-09-22 12:18 | NUR ---
Nutrition: Pt admitted to Rehab with SOB. H/o COPD, afib, HTN. Labs: BUN 34, cr 2, alb 2.7, prealb 20, BG WNL. Heart Healthy diet. Eating 100% of meals. Wt: 248#. Some edema BLE. Currently, appears at low nutrition risk. Will follow weekly.
[2018-09-22 15:44] LABS: % SATURATION 22 % (20-39); IRON 59 ug/dL (50-175)
--- NOTE | 2018-09-22 16:00 | NUR ---
SW met with pt to complete initial assessment, introduce self, and SW role on inpt rehab unit. Pt alert, oriented. 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 Pt has a 4 wheeled walker with a seat and a cane. SW to continue to follow to assist with safe dc planning.
--- NOTE | 2018-09-22 16:24 | NUR ---
PT HAS WATCHED TV IN BEDSIDE CHAIR. RECLINER HAS BEEN PROVIDED. EDUCATION HAS BEEN GIVEN ON DEMAND. PT HAS BEEN UP TO THE DINING ROOM FOR MEALS. PT REQUESTED PAIN MEDICATION X1 FOR BACK PAIN. HYDROCODONE GIVEN AND WAS EFFECTIVE. HOURLY ROUNDING HAS BEEN DONE.
[2018-09-22 20:18] VITALS: BP 98/54
--- NOTE | 2018-09-23 05:12 | NUR ---
ASSUMED PT CARE AT 1930. PT ALERT AND ORIENTED X4. HX OF CARDIAC DEBILITY AND CHF EXACERBATION. PT ALREADY IN BED AT SHIFT CHANGE. 2-3+ EDEMA OF BILATERAL FEET AND ANKLES. PT UP TO BATHROOM TO VOID WITH SBA, GAIT BELT AND WALKER. PT WEARS HOME CPAP OVERNIGHT. PT WITH MANY QUESTIONS REGARDING MEDICATIONS. BED ALARM ON FOR SAFETY. CALL LIGHT AND FREQUENTLY USED ITEMS WTIHIN REACH. HOURLY ROUNDING IN PROGRESS, WILL CONTINUE TO MONITOR.
[2018-09-23 07:00] VITALS: BP 117/52
--- NOTE | 2018-09-23 15:51 | NUR ---
ASSUMED CARE AT 0730. ALERT ORIENTED PLEASANT COOPERATIVE. HX OF CARDIAC DEBILITY AFIB CARDIOVERSION. TRANSFERS WITH SBA G BELT WALKER AND AMBULATES TO BR TO VOID. ABLE TO DO HYGEINE AND CLOTHING ADJUSTMENTS. PARTICIPATING IN THERAPIES THROUGHOUT THE DAY. MEDICATED X 2 FOR C/O CHRONIC BACK PAIN WITH SOME RELIEF STATED HERE VISITING AND BROUGHT PT. LUNCH. TAKES MEDS WITHOUT DIFFICULTY FEEDS SELF. DR. BABB ROUNDED TODAY MENTIONED HE WILL CONSULT CARDIOLOGY PT. ONLY TOOK 1/2 SOTALOL TAB. EDEMA PRESENT BLES ELEVATED IN RECLINER MUCH POSSIBLE. WHEN NOT IN THERAPIES.
[2018-09-23 20:11] VITALS: BP 120/66
--- NOTE | 2018-09-24 05:27 | NUR ---
ASSUMED PT CARE AT 1930. PT ALERT AND ORIENTED X4. HX OF CARDIAC DEBILITY AND CHF EXACERBATION. PT ALREADY IN BED AT SHIFT CHANGE. 2-3+ EDEMA OF BILATERAL FEET AND ANKLES. PT UP TO BATHROOM TO VOID WITH SBA, GAIT BELT AND WALKER. PT WEARS HOME CPAP OVERNIGHT. PRN PAIN MEDICATION ONCE THIS SHIFT FOR BACK PAIN. TAKES MEDS WHOLE WITH WATER WITHOUT DIFFICULTY. PT ONLY TOOK 1/2 SOTALOL TAB. BED ALARM ON FOR SAFETY. CALL LIGHT AND FREQUENTLY USED ITEMS WITHIN REACH. HOURLY ROUNDING IN PROGRESS, WILL CONTINUE TO MONITOR.
[2018-09-24 07:30] VITALS: BP 123/50
--- NOTE | 2018-09-24 15:18 | NUR ---
ASSUMED CARE AT 0730. ALERT ORIENTED PLEASANT COOPERATIVE. HX OF CARDIAC DEBILITY. TRANSFERS WITH SBA G BELT WALKER AND AMBULATES TO BR TO VOID. SITTING UP IN RECLINER AT BEDSIDE WITH FEET ELEVATED EDEMA BLES. MEDICATED FOR BACK PAIN WITH PRN MED WITH SOME RELIEF STATED. AMBULATED TO DR FOR NOON MEAL APPETITE GOOD FEEDS SELF AND TAKES MEDS WITHOUT DIFFICULTY.
[2018-09-24 20:00] VITALS: BP 133/68
[2018-09-25 05:03] LABS: CALCIUM 8.8 mg/dL (8.5-10.1); CREATININE 2.1 mg/dL (0.6-1.3); POTASSIUM 3.6 mmol/L (3.5-5.1)
--- NOTE | 2018-09-25 05:09 | NUR ---
ASSUMED CARE AT 1920. ALERT AND ORIENTED. PLEASANT. NORCO GIVEN FOR BACK PAIN. ONLY WANTED TO TAKE 1/2 TAB OF SOTALOL. CPAP AT NIGHT. MIN ASSIST WITH GAIT BELT AND WALKER. UP TO BATHROOM. SLEPT OTHERWISE.
[2018-09-25 08:52] VITALS: BP 102/48
--- NOTE | 2018-09-25 15:35 | NUR ---
ASSUMED CARE AT 0730. ALERT ORIENTED PLEASANT COOPERATIVE. HX OF CARDIAC DEBILITY. TRANSFERS WITH SBA G BELT WALKER AND AMBULATES TO BR TO VOID ALSO HAD LARGE FORMED BM NORMAL COLOR, HX OF ANEMIA, TAKES MEDS WITHOUT DIFFICULTY. USES CALL LIGHT APPROPRIATELY FOR ASSIST. PARTICIPATING IN THERAPIES THROUGH OUT THE DAY. MEDICATED X 1 WITH HYDROCODONE FOR CHRONIC BACK PAIN WITH SOME RELIEF STATED. DR. OATES ROUNDED AND DR. ANDERSON ALSO.
[2018-09-25 20:00] VITALS: BP 134/71
--- NOTE | 2018-09-26 05:26 | NUR ---
ASSUMED PT CARE AT 1930. PT ALERT AND ORIENTED X4, POLITE AND COOPERATIVE WITH CARES. PRN NORCO ONCE THIS SHIFT FOR BACK PAIN. ONLY TAKES 1/2 OF SOTALOL TAB. WEARS HOME CPAP OVERNIGHT. UP TO BATHROOM WITH MIN ASSIST, GAIT BELT AND WALKER. PT FRUSTRATED THAT CADIOLOGY DID NOT ROUND. USES CALL LIGHT APPROPRIATELY. CALL LIGHT AND FREQUENTLY USED ITEMS WITHIN REACH. HOURLY ROUNDING IN PROGRESS, WILL CONTINUE TO MONITOR.
[2018-09-26 07:46] VITALS: BP 137/63
--- NOTE | 2018-09-26 17:09 | NUR ---
pt has participated with therapies and ambulates with walker,gaitbelt and sba.prn for back pain given with good effect this afternoon.pt continent of b+b and able to adjust clothing and cleanse self.pt is alert and orientated . hourly rounding continues.
[2018-09-26 20:10] VITALS: BP 130/53
--- NOTE | 2018-09-26 21:00 | NUR ---
SITTING UP IN RECLINER WATCHING TV. PAIN MED GIVEN FOR COMPLAINT OF BACK PAIN. SNACK PROVIDED. TOOK MEDICATIONS WHOLE WITH WATER.
--- NOTE | 2018-09-27 05:26 | NUR ---
RESTED QUIETLY WITH CPAP. NO FURTHER COMPLAINT OF PAIN. HOURLY ROUNDING IN PROGRESS.
[2018-09-27 08:28] VITALS: BP 130/77
--- NOTE | 2018-09-27 14:07 | NUR ---
BHAVANA, Dr Gutierrez, and med student met with pt and pt to review team conference summary and plan for pt to dc home with on Saturday 09/30. Pt to advance to mod I prior to dc, maybe tomorrow but not today due to pt with a slight loss of balance today. Pt and pt in agreement with plan. SW to continue to follow to assist with safe dc planning.
--- NOTE | 2018-09-27 16:51 | NUR ---
PT HAS CALLED FOR ASSIST TO BATHROOM THIS AFTERNOON AND AMBULATES WITH WALKER AND GAITBELT. PRN FOR BACK PAIN GIVEN WITH GOOD EFFECT. PT IS CONTINENT OF B+B PT REMAINS ALERT AND ORIENTATED. HOURLY ROUNDING CONTINUES.
[2018-09-27 20:00] VITALS: BP 123/70
--- NOTE | 2018-09-28 05:26 | NUR ---
Assumed patient care at 1900. Patient alert and oriented times four. Minor complatints of pain noted, controlled with oral medication. Able to transfer to the bed from recliner with stb and walker. Patient slept throughout the shift. fall risk precautions in place. wholesale manager and hourly rounding completed as documented.
[2018-09-28 08:00] VITALS: BP 122/60
--- NOTE | 2018-09-28 19:22 | NUR ---
I ASSUMED CARE OF THE PATIENT AT 0700. HE IS ALERT AND ORIENTED X4 AND IS UP WITH SBA, GB AND WALKER. BED IS IN THE LOW LOCKED POSITION AND CALL LIGHT IS IN REACH. HOURLY ROUNDING WAS COMPLETED AND PATIENT NEEDS WERE MET. PAIN IS MANAGED WITH PRN MEDS. CARDIOLOGY CHANGED HIS SOTALOL TO A DIFFERENT MED AFTER C/O SOA WITH ASTHMA. WILL CONTINUE TO MONITOR.
[2018-09-28 20:06] VITALS: BP 116/56
[2018-09-29 00:46] VITALS: BP 116/56
[2018-09-29] MEDS ORDERED: LIPITOR10 MG PO (01:40)
[2018-09-29] MEDS ORDERED: PULMICORT0.5 MG/22 INH (01:43)
[2018-09-29] MEDS ORDERED: FLECAINIDE ACET50 M2 PO (01:48)
--- NOTE | 2018-09-29 05:33 | NUR ---
ASSUMED CARES AT 1920. ALERT AND ORIENTED, PLEASANT. MELATONIN GIVEN FOR SLEEP. CPAP AT NIGHT. SBA WITH GAIT BELT AND WALKER. UP TO BATHROOM. SLEPT WELL. CALL LIGHT IN REACH.
[2018-09-29 07:00] VITALS: BP 121/71
--- NOTE | 2018-09-29 14:11 | NUR ---
ASSUMED CARE AT 0730. ALERT ORIENTED PLEASANT COOPERATIVE.. HX OF CARDIAC DEBILITY. TRANSFERS WITH SBA G BELT WALKER AMBULATES TO BR TO VOID ABLE TO DO HYGEINE AND CLOTHING ADJUSTMENTS. MEDICATED X 1 FOR C/O BACK PAIN WITH SOME RELIEF NOTED. USES CALL LIGHT APPROPRIATELY FOR ASSISTANCE. SITTING UP IN RECLINER WHEN NOT PARTICIPATING IN THERAPIES. FEEDS SELF AND TAKES MEDS WITHOUT DIFFICULTY.
[2018-09-29 16:16] VITALS: BP 116/56
--- NOTE | 2018-09-29 16:18 | NUR ---
Pt to dc home with on Saturday 09/30. Pt to have HH services to follow; SW arranged with pt preference on [facility]. ph [phone] Pt has 4 ww with a seat. Pt to provide pt ride home.
[2018-09-29 20:00] VITALS: BP 118/65
[2018-09-30 04:40] LABS: HEMATOCRIT 32.8 % (42.0-52.0); HEMOGLOBIN 10.9 gm/dL (14.0-18.0); MCH 29.7 pg (26.0-34.0); MCHC 33.3 g/dL (28.0-37.0); MCV 89.3 fL (80.0-100.0); MPV 10.2 fl. (7.2-11.1); RBC 3.67 mil/uL (4.50-6.00); WBC 5.6 thou/uL (4.0-11.0)
--- NOTE | 2018-09-30 05:15 | NUR ---
ASSUMED CARE AT 1920. ALERT AND ORIENTED. PLEASANT. SBA WITH GAIT BELT AND WALKER. UP TO BATHROOM. DOES OWN CARES. TAKES PILLS WHOLE. CPAP AT NIGHT. NO ISSUES OVERNIGHT. CALL LIGHT IN REACH.
[2018-09-30 07:30] VITALS: BP 116/69
--- NOTE | 2018-09-30 09:02 | EKG ---
[place] [address] ELECTROCARDIOGRAM REPORT Name: ROMINA CARDONA Room: [address] ADM IN M.R.#: [id number] Admission: 09/21/18 Attend Phys: Nathaly Gutierrez DO Discharge: Date of : 45 Report #: [id number] THIS REPORT FOR: //name// [facility] Test Date: 2018-09-30 Test Time: 07:56:09 Pat Name: ROMINA DULCE Department: Room: [address] Gender: M Financial Counselor: SHANITA : 1945 Requested By: Leandro Bauer Order Number: [id number] Laurent MD: Ajay Hernadez Measurements Intervals [place] Rate: 58 P: 36 AK: 266 QRS: -17 QRSD: 133 T: 61 QT: 468 QTc: 460 Interpretive Statements Sinus rhythm Prolonged AK interval Left bundle branch block Compared to ECG 09/16/2018 08:22:12 Atrial premature complex(es) no longer present Electronically Signed On 09-30-2018 9:02:24 MEDICAL INFORMATION OFFICER by Ajay Hernadez [email or web address] <ELECTRONICALLY SIGNED> By: Ajay Hernadez MD, [facility] 09/30/18 0902 [phone] Ajay Hernadez MD, [facility] /EPI
== END 2018-09-30 13:30 | disposition home health service (06) | DRG 309 ==
LOC: M.REH 09:55
PROVIDERS: Internal Medicine; ADMIT Physical Medicine & Rehabilitation
DX: I48.91 Unspecified atrial fibrillation (principal); I13.0 Hypertensive heart and chronic kidney disease with heart failure and stage 1 through stage 4 chronic kidney disease, or unspecified chronic kidney disease; R53.81 Other malaise; N18.9 Chronic kidney disease, unspecified; G89.29 Other chronic pain; M54.5 Low back pain; J44.9 Chronic obstructive pulmonary disease, unspecified; H40.9 Unspecified glaucoma; Z96.643 Presence of artificial hip joint, bilateral; Z98.41 Cataract extraction status, right eye; Z98.42 Cataract extraction status, left eye; Z95.2 Presence of prosthetic heart valve; Z91.013 Allergy to seafood; Z88.8 Allergy status to other drugs, medicaments and biological substances; Z82.49 Family history of ischemic heart disease and other diseases of the circulatory system

== ENCOUNTER 2019-01-25 15:27 | Emergency (ER) | payer MEDICARE, OTHER ==
[~2019-01-25] VITALS: Ht 180.3 cm; Wt 101.6 kg
[~2019-01-25 15:27] MED LIST changes: +FLECAINIDE ACET50 M2 PO; +LIPITOR10 MG PO; +PULMICORT0.5 MG/22 INH
[2019-01-25] MEDS ORDERED: PERCOCET PO (17:13)
[2019-01-25 17:25] VITALS: BP 115/69
== END 2019-01-25 17:26 | disposition home or self-care (01) ==
LOC: M.ERS 15:27
DX: M25.551 Pain in right hip (principal); J45.909 Unspecified asthma, uncomplicated; I48.91 Unspecified atrial fibrillation; Z91.013 Allergy to seafood; Z88.8 Allergy status to other drugs, medicaments and biological substances; Z96.643 Presence of artificial hip joint, bilateral; Z98.890 Other specified postprocedural states

== ENCOUNTER → 2019-05-22 | Outpatient (CLI) | payer MEDICARE, OTHER ==
[2019-05-22] VITALS (7 sets, daily range): BP systolic 89–118; BP diastolic 61–69
[~2019-05-22] MED LIST changes: +ASPIR 8181 MG PO; +ELIQUIS5 MG PO; +PACERONE 200 M200 M1 PO; +PERCOCET PO; +PLAVIX 75 MG TA75 M1 PO; +THERA M PLUS T1 EAC2 PO; +VITAMIN D31000 UNIT PO
[2019-05-22 09:41] LABS: HEMATOCRIT 30.3 % (42.0-52.0); HEMOGLOBIN 10.3 gm/dL (14.0-18.0); MCH 28.8 pg (26.0-34.0); MCHC 34.2 g/dL (28.0-37.0); MCV 84.4 fL (80.0-100.0); MPV 8.8 fl. (7.2-11.1); RBC 3.59 mil/uL (4.50-6.00); RDW-CV 18.5 % (10.5-14.5)
[2019-05-22 09:45] LABS: CALCIUM 8.9 mg/dL (8.5-10.1); CREATININE 2.9 mg/dL (0.6-1.3); POTASSIUM 4.4 mmol/L (3.5-5.1)
[2019-05-22 09:50] LABS: ALBUMIN 3.4 g/dL (3.4-5.0); TOTAL BILIRUBIN 0.6 mg/dL (<0.1-1.0)
[2019-05-22 10:00] LABS: INR 1.4; PROTIME 13.9 Seconds (9.20-11.50)
--- NOTE | 2019-05-22 17:24 | EKG ---
[place] [address] ELECTROCARDIOGRAM REPORT Name: ROMINA CARDONA Room: [facility]#: [id number] Admission: 05/22/19 Attend Phys: Tobi Fernandez MD Discharge: Date of : 45 Report #: [id number] THIS REPORT FOR: //name// [facility] Test Date: 2019-05-22 Test Time: 09:48:43 Pat Name: ROMINA CARDONA Department: Room: Gender: M Home Based Assistant: : 1945 Requested By: Tobi Fernandez Order Number: [id number] Laurent MD: Tobi Fernandez Measurements Intervals [place] Rate: 81 P: [place]: QRS: -30 QRSD: 125 T: 91 QT: 404 QTc: 469 Interpretive Statements Atrial fibrillation Left bundle branch block Baseline wander in lead(s) V4 Compared to ECG 09/30/2018 07:56:09 Sinus rhythm no longer present First degree AV block no longer present Electronically Signed On 05-22-2019 17:24:11 CDT by Tobi Fernandez [email or web address] <ELECTRONICALLY SIGNED> By: Tobi Fernandez MD, [facility] 05/22/19 1724 0948 0948 Tobi Fernandez MD, [facility] /EPI
--- NOTE | 2019-05-22 17:26 | EKG ---
[place] [address] ELECTROCARDIOGRAM REPORT Name: ROMINA CARDONA Room: [facility]#: [id number] Admission: 05/22/19 Attend Phys: Tobi Fernandez MD Discharge: Date of : 45 Report #: [id number] THIS REPORT FOR: //name// [facility] Test Date: 2019-05-22 Test Time: 11:32:15 Pat Name: ROMINA CARDONA Department: Room: Gender: M Database Security Expert: : 1945 Requested By: Tobi Fernandez Order Number: [id number] Reading MD: Tobi Fernandez Measurements Intervals [place] Rate: 74 P: ND: QRS: -30 QRSD: 131 T: 86 QT: 415 QTc: 461 Interpretive Statements Sinus rhythm with first-degree AV block Left bundle branch block Compared to ECG 09/30/2018 07:56:09 Sinus rhythm has replaced atrial fibrillation Electronically Signed On 05-22-2019 17:26:00 CDT by Tobi Fernandez [email or web address] <ELECTRONICALLY SIGNED> By: Tobi Fernandez MD, [facility] 05/22/19 1726 113 31 Tobi Fernandez MD, [facility] /EPI
--- NOTE | 2019-06-01 09:45 | CARD ---
[address] [address] CARDIAC CATH REPORT Name: ROMINA CARDONA DELVIN BARROSO Room: [facility]#: [id number] Admission: 05/22/19 Attend Phys: Tobi Fernandez MD Discharge: Date of : 45 Report #: [id number] THIS REPORT FOR: //name// CC: Corey RUTH DATE OF SERVICE: 05/22/2019 INDICATION: Persistent atrial fibrillation. PROCEDURE: DC cardioversion. DESCRIPTION OF PROCEDURE: After informed consent was obtained, the patient was brought to the cardiac holding area. The patient was given intravenous Versed and fentanyl for conscious sedation. Once the patient was adequately sedated, he was cardioverted from atrial fibrillation to normal sinus rhythm with a single biphasic shock of 360 joules. The patient tolerated the procedure well without complication. IMPRESSION: 1. Persistent atrial fibrillation. 2. Successful direct current cardioversion to normal sinus rhythm. <ELECTRONICALLY SIGNED> By: Tobi Fernandez MD, FACC 06/01/19 0945 1653 [id number] Center[facility]ila Fernandez MD, FACC /nt
== END | disposition home or self-care (01) ==
LOC: M.CL 08:57
PROVIDERS: Internal Medicine Cardiovascular Disease
DX: I48.1 Persistent atrial fibrillation (principal); I12.9 Hypertensive chronic kidney disease with stage 1 through stage 4 chronic kidney disease, or unspecified chronic kidney disease; N18.9 Chronic kidney disease, unspecified; J44.9 Chronic obstructive pulmonary disease, unspecified; Z88.8 Allergy status to other drugs, medicaments and biological substances; Z79.899 Other long term (current) drug therapy; Z79.01 Long term (current) use of anticoagulants; Z98.890 Other specified postprocedural states

== ENCOUNTER 2019-05-24 16:07 | Inpatient (IN) | payer MEDICARE, OTHER ==
[~2019-05-24] VITALS: Ht 175.3 cm; Wt 98.0 kg
[~2019-05-24 16:07] MED LIST changes: -PLAVIX 75 MG TA75 M1 PO; -THERA M PLUS T1 EAC2 PO
[2019-05-24 18:50] LABS: ABSOLUTE BASOPHILS 0.3 thou/uL (0.0-0.2); ABSOLUTE EOSINOPHILS 0.5 thou/uL (0.0-0.7); ABSOLUTE LYMPHOCYTES 1.2 thou/uL (0.8-5.3); ABSOLUTE MONOCYTES 0.6 thou/uL (0.0-1.2); ABSOLUTE NEUTROPHILS 2.1 thou/uL (1.6-8.1); BASOPHILS 6.5 %; EOSINOPHILS 10.5 %; HEMATOCRIT 25.9 % (42.0-52.0); HEMOGLOBIN 8.8 gm/dL (14.0-18.0); LYMPHOCYTES 25.6 %; MCH 28.9 pg (26.0-34.0); MCHC 34.1 g/dL (28.0-37.0); MCV 84.7 fL (80.0-100.0); MPV 9.1 fl. (7.2-11.1); NUCLEATED RBCS 0 /100WBC; PLATELET COUNT* 156 thou/uL (150-400); POLYS 45.4 %; RBC 3.05 mil/uL (4.50-6.00); RDW-CV 18.1 % (10.5-14.5); WBC 4.6 thou/uL (4.0-11.0)
[2019-05-24 18:57] LABS: CALCIUM 8.7 mg/dL (8.5-10.1)
[2019-05-24 20:00] VITALS: BP 101/56
[2019-05-24 22:17] LABS: % SATURATION 13 % (20-39); IRON 35 ug/dL (50-175)
[2019-05-24 22:20] VITALS: BP 112/56; BP 117/60; BP 124/76
[2019-05-24 23:25] LABS: INR 1.2; PROTIME 12.7 Seconds (9.20-11.50)
[2019-05-25 01:47] LABS: HEMATOCRIT 27.1 % (42.0-52.0); HEMOGLOBIN 9.4 gm/dL (14.0-18.0); MCH 29.2 pg (26.0-34.0); MCHC 34.6 g/dL (28.0-37.0); MCV 84.4 fL (80.0-100.0); MPV 8.9 fl. (7.2-11.1); RBC 3.22 mil/uL (4.50-6.00); RDW-CV 17.8 % (10.5-14.5); WBC 5.3 thou/uL (4.0-11.0)
[2019-05-25 01:54] LABS: CALCIUM 8.6 mg/dL (8.5-10.1); PHOSPHORUS* 4.3 mg/dL (2.5-4.9); POTASSIUM 3.9 mmol/L (3.5-5.1)
[2019-05-25 04:00] VITALS: BP 96/54
[2019-05-25 08:00] VITALS: BP 151/87
[2019-05-25 11:30] VITALS: BP 134/75
[2019-05-25 12:30] LABS: URINE BILIRUBIN NEGATIVE (Negative); URINE BLOOD NEGATIVE (Negative); URINE CLARITY CLEAR; URINE COLOR YELLOW; URINE GLUCOSE-RANDOM NEGATIVE (Negative); URINE KETONES NEGATIVE (Negative); URINE LEUKOCYTES NEGATIVE (Negative); URINE NITRITE NEGATIVE (Negative); URINE PROTEIN 1+ (Negative); URINE SPECIFIC GRAVITY 1.015 (1.005-1.030); URINE UROBILINOGEN 0.2 E.U./dl (0.2-1.0)
--- NOTE | 2019-05-25 12:47 | EKG ---
[place] [address] ELECTROCARDIOGRAM REPORT Name: ROMINA CARDONA II Room: [address] ADM IN M.R.#: [id number] Admission: 05/24/19 Attend Phys: Steve Vick Discharge: Date of : 45 Report #: [id number] THIS REPORT FOR: //name// [facility] Test Date: 2019-05-25 Test Time: 06:32:44 Pat Name: ROMINA CARDONA Department: Room: [address] Gender: M Registered Vascular Technologist (Rvt): [facility] : 1945 Requested By: Steve Mullen Order Number: [id number] Laurent MD: Ajay Hernadez Measurements Intervals [place] Rate: 70 P: -24 CT: 376 QRS: -33 QRSD: 129 T: 82 QT: 445 QTc: 481 Interpretive Statements Sinus rhythm Prolonged CT interval Left bundle branch block Compared to ECG 05/22/2019 11:32:15 no change Electronically Signed On 05-25-2019 12:46:57 CDT by Ajay Hernadez [email or web address] <ELECTRONICALLY SIGNED> By: Ajay Hernadez MD, [facility] 05/25/19 1246 0632 0632 Ajay Hernadez MD, [facility] /EPI
[2019-05-25 16:00] VITALS: BP 117/67
[2019-05-25 20:00] VITALS: BP 134/73
[2019-05-25 23:53] VITALS: BP 134/75
[2019-05-26 04:00] VITALS: BP 150/81
[2019-05-26 05:27] LABS: CALCIUM 8.1 mg/dL (8.5-10.1); CREATININE 2.6 mg/dL (0.6-1.3); POTASSIUM 3.9 mmol/L (3.5-5.1)
--- NOTE | 2019-05-26 07:32 | CON ---
[address] [address] CONSULTATION Name: ROMINA CARDONA II Room: [address] IN M.R.#: [id number] Admission: 05/24/19 Attend Phys: Steve Vick Discharge: Date of : 45 Report #: [id number] THIS REPORT FOR: //name// CC: Steve Batista DATE OF SERVICE: 05/25/2019 NEPHROLOGY CONSULTATION CONSULTING PHYSICIAN: Dr. Steve Mullen. REASON FOR NEPHROLOGY CONSULTATION: Acute kidney injury on chronic kidney disease stage 3. REASON FOR ADMISSION: Acute kidney injury on chronic kidney disease stage 3 and acute blood loss anemia. HISTORY OF PRESENT ILLNESS: This is a 73-year-old male, who has past medical history of congenital solitary kidney, chronic kidney disease stage 3, his baseline creatinine is more so around 2-2.1, but more recently it was 1.7 in February of this year, follows with Dr. Horton, who is one of my partners at [facility]; history of GI bleed, on Xarelto; recent Watchman device placement about 5 weeks ago and placed on Eliquis at that time; was directly admitted from Dr. Horton's office yesterday because of drop in hemoglobin. The patient is just feeling bad and elevated creatinine. His creatinine was elevated at 2.9-3 just recently when his labs were checked on 05/22 and his hemoglobin has dropped two points in the last couple of days and he also reported black tarry stools when he visited Dr. Horton yesterday. Hence, Dr. Horton decided to directly admit him to 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 He follows with Dr. Fernandez. The patient had a Watchman device placed about 5 weeks ago and was started on Eliquis. He has past medical history of GI bleed, on Xarelto and history of duodenal ulcer in the past. He is supposed to have a JAMES next week and at that time, they would have taken him off his anticoagulation, and he did undergo cardioversion just this last Tuesday and at that time, his atrial fibrillation was put back in sinus rhythm. He is just currently feeling very weak and he also feels he has a weak stream of urine. He was on Flomax at one point, but he took him off it by himself. His creatinine is 3.0 today and yesterday. He did not have any black tarry stools overnight, but his last episode was yesterday morning. His urine output has not been recorded. He does not take any NSAIDs. He does have torsemide and lisinopril at home, and he has also been hypotensive. His blood pressure was 96/54 this morning. ALLERGIES: SHELLFISH AND ATROPINE. REVIEW OF SYSTEMS: This is as mentioned in history [place] [address] CONSULTATION Name: ROMINA CARDONA II Room: [address] IN ..#: [id number] Admission: 05/24/19 Attend Phys: Steve Vick Discharge: Date of : 45 Report #: [id number] also very weak, otherwise 10-point review of systems is negative. PAST MEDICAL AND SURGICAL HISTORY: Includes bilateral hip replacement, 1 kidney from with a history of kidney disease and baseline creatinine is more so in the range of 1.7-2, tonsillectomy, bilateral cataracts, aortic valve replacement with cow tissue, spinal cord cyst, back fusion, right ulnar nerve transfer, trigger finger release, glaucoma, asthma, spinal nerve stimulator, and atrial fibrillation. FAMILY HISTORY: No family history of kidney disease reported. SOCIAL HISTORY: Does not smoke or take alcohol or use illicit drugs. HOME MEDICATIONS: Torsemide 10 mg once a day, lisinopril 5 mg once a day, potassium chloride 10 mEq once a day, clonazepam, albuterol, latanoprost, Eliquis, cholecalciferol, aspirin, amiodarone, atorvastatin, montelukast, and citalopram. PHYSICAL EXAMINATION: VITAL SIGNS: Blood pressure is 96/54, pulse rate is 68, temperature is 36.6, respiratory rate is 16, and pulse oximetry is 99% on room air. GENERAL: He is awake and alert. Just he looks very tired. He is oriented x3. HEAD AND EYES: Atraumatic, normocephalic. He looks very pale and normal conjunctivae. EARS, NOSE, AND THROAT: Mucous membranes are moist. Normal ears and nose. NECK: There is no JVD. CHEST: Bilaterally clear to auscultation anteriorly. No crackles or wheezing. CARDIOVASCULAR: S1, S2 normal. No murmurs. ABDOMEN: Distended, otherwise soft and nontender. Bowel sounds are present. EXTREMITIES: There is no lower extremity edema. NEUROLOGICAL FUNCTION: Gross neurological function is intact. PSYCHIATRIC: Mood and affect seems to be normal. LABORATORY DATA: Hemoglobin is 9.4, platelet count is 149. Sodium is 135, potassium is 3.9, chloride is 101, BUN is 57, and creatinine is 3.0. Iron saturation was 13%, albumin was 3.0, and other labs are reviewed. IMAGING: There is no imaging to be reviewed. ASSESSMENT: 1. Acute kidney injury on chronic kidney disease stage 3. His baseline creatinine today is 1.7-2, creatinine was 3.0 on admission. This is likely acute tubular necrosis in the setting of acute blood loss, hypotension, torsemide and lisinopril use. 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 He follows with Dr. Horton as outpatient. UA and renal [place] [address] CONSULTATION Name: ROMINA CARDONA II Room: [address] IN .R.#: [id number] Admission: 05/24/19 Attend Phys: Steve Vick Discharge: Date of : 45 Report #: [id number] 2. Acute blood loss anemia, was recently started on anticoagulation. Defer to primary team and GI has been consulted. 3. History of atrial fibrillation, status post recent Watchman device 5 weeks ago, started on anticoagulation. 4. History of duodenal ulcer. 5. History of iron deficiency anemia. 6. Left renal agenesis. 7. Anxiety and depression. 8. Dyslipidemia. 9. History of hypertension, but currently running hypotensive. 10. Remote history of aortic valve replacement with cow tissue. PLAN: 1. His creatinine is stable. He should be on strict I's and O's and a UA should be checked. Continue IV fluids normal saline at 100 mL an hour and keep torsemide and lisinopril on hold. 2. Try to maintain his mean arterial pressure around 65-70. 3. Iron saturation 13%. Eventually can get IV iron, but first we will have to see what plans GI will have. 4. He is on sucralfate, be cautious about using sucralfate in adrenal insufficiency because of risk for aluminium accumulation. 5. Avoid nephrotoxic agents. Avoid IV contrast. 6. Check a bladder scan to make sure he is not retaining urine. Thank you for this consultation. I discussed plan with the patient as well as the patient's nurse and we will continue to follow with you. <ELECTRONICALLY SIGNED> By: Hayley Albert MD 05/26/19 0732 0852 [id number] ann Albert MD /nt
[2019-05-26 07:57] LABS: ABSOLUTE BASOPHILS 0.3 thou/uL (0.0-0.2); ABSOLUTE EOSINOPHILS 0.5 thou/uL (0.0-0.7); ABSOLUTE LYMPHOCYTES 1.4 thou/uL (0.8-5.3); ABSOLUTE MONOCYTES 0.5 thou/uL (0.0-1.2); ABSOLUTE NEUTROPHILS 2.2 thou/uL (1.6-8.1); BASOPHILS 6.3 %; EOSINOPHILS 9.6 %; HEMATOCRIT 24.6 % (42.0-52.0); HEMOGLOBIN 8.5 gm/dL (14.0-18.0); LYMPHOCYTES 28.1 %; MCHC 34.5 g/dL (28.0-37.0); MCV 84.2 fL (80.0-100.0); MONOCYTES 10.2 %; MPV 9.6 fl. (7.2-11.1); NUCLEATED RBCS 0 /100WBC; PLATELET COUNT* 143 thou/uL (150-400); POLYS 45.8 %; RBC 2.93 mil/uL (4.50-6.00); RDW-CV 17.4 % (10.5-14.5); WBC 4.9 thou/uL (4.0-11.0)
[2019-05-26 08:00] VITALS: BP 136/71
--- NOTE | 2019-05-26 10:28 | CON ---
[address] [address] CONSULTATION Name: ROMINA CARDONA II Room: [address] IN M.R.#: [id number] Admission: 05/24/19 Attend Phys: Steve Vick Discharge: Date of : 45 Report #: [id number] THIS REPORT FOR: //name// CC: Steve Ann DO DATE OF SERVICE: 05/25/2019 CARDIOLOGY CONSULTATION HISTORY OF PRESENT ILLNESS: The patient is a 73-year-old white male who I was asked to see in the hospital today after he was noted to be anemic. The patient has an extensive and complicated past medical history. He apparently was found to have aortic valve disease and approximately 10 years ago, underwent aortic valve replacement at [facility] using a tissue valve. He has a history of paroxysmal atrial fibrillation. He was actually cardioverted in September of this year. However, he had recurrent atrial fibrillation and was cardioverted again just [address] Fernandez here at [facility]. He was started on amiodarone. Dr. Fernandez just saw him in the Cardiology Clinic 2 days ago. He has a history of anemia. He is noted to be anemic in September. He was given 3 units of blood at that time as well as IV iron. He underwent endoscopy that showed no source of bleeding. His EGD apparently showed no acute abnormality. He underwent a small bowel capsule study that showed no bleeding. Colonoscopy showed polyps. Because of his anemia, he actually had a WATCHMAN Left Atrial Appendage Closure Device placed at [facility] on the [address] by Dr. Hyde approximately 5 weeks ago. He was then placed on Eliquis. Recently, however, he has noticed black stools. He went to see his grape pruner yesterday and since his creatinine had increased and his hemoglobin has dropped, he was admitted to the hospital for further evaluation and treatment. He denied any vomiting of blood. He has had no fever or chest pain. He has felt weak and short of breath. No significant edema or palpitations. PAST MEDICAL HISTORY: Significant for back surgery, carpal tunnel surgery, neurostimulator placement in his back for chronic back pain. He has had hip surgery and ulnar nerve surgery. He has a history of sleep apnea, uses CPAP. He has a history of hypertension and hyperlipidemia. MEDICATIONS: Include albuterol inhaler, amiodarone; he is on 200 mg a day, Eliquis 5 mg twice a day, Lipitor 10 mg a day, Zestril 5 mg a day, Singulair inhaler, torsemide 10 mg a day. ALLERGIES: HE HAS A PREVIOUS INTOLERANCE TO SHELLFISH. FAMILY HISTORY: [place] [address] CONSULTATION Name: ROMINA CARDONA II Room: [address] IN [facility]#: [id number] Admission: 05/24/19 Attend Phys: Steve Vick Discharge: Date of : 45 Report #: [id number] SOCIAL HISTORY: He is . He and his live here in [place]. 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 No smoking. Rarely drinks alcohol. REVIEW OF SYSTEMS: He has had no history of stroke. He has asthma. No history of liver disease. He has chronic kidney disease. He is followed by Nephrology. No cancer. No psychiatric illness. No chronic skin condition. PHYSICAL EXAMINATION: GENERAL: Revealed an elderly male, lying in bed, he appeared in no distress. VITAL SIGNS: He had a blood pressure of 110/70, pulse is 70, he was afebrile. HEENT: He was anicteric. Mucous membranes moist. CHEST: Clear to auscultation. HEART: Regular rate and rhythm. ABDOMEN: Soft. EXTREMITIES: Had no edema. SKIN: Cool and dry. NEUROLOGIC: Nonfocal. His ECG done shows a sinus rhythm, first-degree AV block with a left bundle-branch block. His workup, he actually had a JAMES performed in September that showed ejection fraction 55%, left ventricular hypertrophy, left atrial enlargement, no ASD or PFO was noted by bubble study. Tissue aortic valve appeared to be functioning normally. Mild mitral regurgitation. No thrombus in the left atrial appendage. He actually had a nuclear stress test a year ago here at [facility] that showed ejection fraction of 78%, but no ischemia. He had portable chest x-ray in September that showed atelectasis, evidence of previous valve replacement. His lab work: Today, sodium 135, potassium 3.9, BUN 57; it has been as high as 65 in 2018, his creatinine is 3.0; it was 2.8 in September. His liver function studies are normal. His white blood cell count 5.3, hemoglobin 9.4, hematocrit 27.1; it was actually down to 24 in September, platelet count 149,000. IMPRESSION AND RECOMMENDATIONS: 1. Melena. The patient is being evaluated by the GI service. I would hold Eliquis at this time. 2. History of atrial fibrillation. Currently, in sinus rhythm, on amiodarone. I would hold Eliquis at this time because of bleeding. 3. Recent implantation of a WATCHMAN Left Atrial Appendage Closure Device. 4. Previous aortic valve replacement using tissue valve. 5. Hypertension. The patient is on an NENO inhibitor. 6. Hyperlipidemia. The patient is on a statin drug. 7. [place] [address] CONSULTATION Name: DULCEROMINAKIRBY HARGROVE II Room: [address] IN M.R.#: [id number] Admission: 05/24/19 Attend Phys: Steve Vick Discharge: Date of : 45 Report #: [id number] 8. Chronic kidney disease. The patient followed by Nephrology. 9. Chronic back pain. The patient has a nerve stimulator in place. <ELECTRONICALLY SIGNED> By: Ajay Hernadez MD, FACC 05/26/19 1028 0930 [id number] Hernadez MD, FACC /nt
[2019-05-26 12:00] VITALS: BP 132/70
[2019-05-26 16:00] VITALS: BP 143/74
[2019-05-26 22:56] VITALS: BP 127/71
[2019-05-27 04:00] VITALS: BP 128/76
[2019-05-27 05:17] LABS: HEMATOCRIT 23.6 % (42.0-52.0); HEMOGLOBIN 8.1 gm/dL (14.0-18.0); MCHC 34.3 g/dL (28.0-37.0); MCV 84.4 fL (80.0-100.0); MPV 9.4 fl. (7.2-11.1); RBC 2.79 mil/uL (4.50-6.00); RDW-CV 17.5 % (10.5-14.5)
[2019-05-27 05:35] LABS: CALCIUM 8.2 mg/dL (8.5-10.1); CREATININE 2.4 mg/dL (0.6-1.3)
[2019-05-27 08:14] VITALS: BP 163/88
[2019-05-27 12:16] VITALS: BP 149/79
[2019-05-27 16:51] VITALS: BP 144/75
[2019-05-27 20:00] VITALS: BP 137/74
[2019-05-28] VITALS (7 sets, daily range): BP systolic 97–129; BP diastolic 57–70
[2019-05-28 05:27] LABS: HEMOGLOBIN 8.7 gm/dL (14.0-18.0); MCH 28.7 pg (26.0-34.0); MCHC 33.6 g/dL (28.0-37.0); MCV 85.3 fL (80.0-100.0); MPV 9.4 fl. (7.2-11.1); NUCLEATED RBCS 0 /100WBC; PLATELET COUNT* 174 thou/uL (150-400); RBC 3.04 mil/uL (4.50-6.00); RDW-CV 17.6 % (10.5-14.5); WBC 6.4 thou/uL (4.0-11.0)
[2019-05-28 05:38] LABS: CALCIUM 8.5 mg/dL (8.5-10.1); CREATININE 2.7 mg/dL (0.6-1.3); POTASSIUM 4.1 mmol/L (3.5-5.1)
[2019-05-28 05:59] LABS: ABSOLUTE EOSINOPHILS 0.5 thou/uL (0.0-0.7); ABSOLUTE LYMPHOCYTES 2.3 thou/uL (0.8-5.3); ABSOLUTE MONOCYTES 0.5 thou/uL (0.0-1.2); ABSOLUTE NEUTROPHILS 3.1 thou/uL (1.6-8.1); PLATELET ESTIMATE ADEQUATE
[2019-05-28 06:01] LABS: ANISOCYTOSIS 1+; POIKILOCYTOSIS 1+; POLYCHROMASIA 1+
[2019-05-29] VITALS (7 sets, daily range): BP systolic 111–137; BP diastolic 57–74
[2019-05-29 05:09] LABS: HEMATOCRIT 22.9 % (42.0-52.0); HEMOGLOBIN 7.7 gm/dL (14.0-18.0)
[2019-05-29 05:19] LABS: ALBUMIN 2.7 g/dL (3.4-5.0); CALCIUM 8.2 mg/dL (8.5-10.1); CREATININE 2.5 mg/dL (0.6-1.3); PHOSPHORUS* 4.2 mg/dL (2.5-4.9); POTASSIUM 3.8 mmol/L (3.5-5.1)
[2019-05-30] VITALS: BP 120/73
[2019-05-30 04:00] VITALS: BP 105/74
[2019-05-30 04:22] LABS: HEMATOCRIT 27.1 % (42.0-52.0); HEMOGLOBIN 9.2 gm/dL (14.0-18.0)
[2019-05-30 04:54] LABS: CALCIUM 8.7 mg/dL (8.5-10.1); CREATININE 2.4 mg/dL (0.6-1.3); PHOSPHORUS* 4.1 mg/dL (2.5-4.9); POTASSIUM 4.2 mmol/L (3.5-5.1)
[2019-05-30 08:00] VITALS: BP 125/75
[2019-05-30 12:00] VITALS: BP 114/61
[2019-05-30 16:00] VITALS: BP 128/64
[2019-05-30 20:00] VITALS: BP 122/68
[2019-05-31] VITALS: BP 118/62
[2019-05-31 04:00] VITALS: BP 123/73
[2019-05-31 04:51] LABS: HEMATOCRIT 24.5 % (42.0-52.0); HEMOGLOBIN 8.3 gm/dL (14.0-18.0)
[2019-05-31 07:00] VITALS: BP 126/61
[2019-05-31 12:00] VITALS: BP 138/69
[2019-05-31] MEDS ORDERED: DEMADEX20 MG PO (14:18)
[2019-05-31] MEDS ORDERED: PLAVIX 75 MG TA75 M1 PO (14:18)
[2019-05-31] MEDS ORDERED: THERA M PLUS T1 EAC2 PO (14:19)
[2019-05-31 15:25] VITALS: BP 138/69
[2019-05-31 15:34] VITALS: BP 138/69
--- NOTE | 2019-05-31 21:47 | CON ---
[address] [address] CONSULTATION Name: ROMINA CARDONA II Room: [address] IN M.R.#: [id number] Admission: 05/24/19 Attend Phys: Steve Vick Discharge: 05/31/19 Date of : 45 Report #: [id number] THIS REPORT FOR: //name// CC: Steve Batista DATE OF SERVICE: 05/30/2019 DIAGNOSES: 1. Iron deficiency anemia. 2. Chronic kidney disease. HISTORY OF PRESENT ILLNESS: A 73-year-old male who has been previously evaluated last month due to iron deficiency anemia. The patient's workup previously showed GI blood loss. The patient received intravenous iron; however, most recently his hemoglobin has been trending down. He has been on anticoagulation in the process of WATCHMAN procedure and cardioversion. The patient's hemoglobin started to drop. In addition to that, his occult blood came back positive as an outpatient. He is supposed to start intravenous iron. He reported shortness of breath upon exertion with lightheadedness, but no chest pain, palpitations or hemoptysis. He continues to have black stool. The patient's initial evaluation showed he had renal failure. He has been followed by Nephrology during this hospital stay. The patient received intravenous iron in addition to erythropoietin. REVIEW OF SYSTEMS: All systems were reviewed. It was negative except the above. PAST MEDICAL HISTORY: AFib, iron deficiency anemia, hypertension, status post AVR, dyslipidemia and depression. PAST SURGICAL HISTORY: Bilateral hip replacements, bilateral cataract surgeries, back surgery, trigger finger release and spinal nerve stimulator. SOCIAL HISTORY: No smoking, no alcohol abuse and no drug abuse. ALLERGIES: SHELLFISH AND ATROPINE. MEDICATIONS: Per admission list. FAMILY HISTORY: Noncontributory. PHYSICAL EXAMINATION: VITAL SIGNS: Today, temperature is 36.8, pulse 97, respirations 18, blood pressure is 114/61 and SpO2 is 98%. GENERAL: The patient was sitting in chair. He [place] [address] CONSULTATION Name: ROMINA CARDONA II Room: [address]#: [id number] Admission: 05/24/19 Attend Phys: Steve Vick Discharge: 05/31/19 Date of : 45 Report #: [id number] LUNGS: Decreased breathing sounds bilaterally. HEART: Regular rate and rhythm. S1, S2 within normal limits. ABDOMEN: Soft, nontender and nondistended. EXTREMITIES: No edema, no cyanosis and no clubbing. LABORATORY DATA: Today, WBC 6.4, hemoglobin actually improved in the last 48 hours to the level of 9.1 and his MCV is 85.3. Sodium is 136, potassium is 4.2, creatinine 2.4, calcium is 8.7, iron 35, TIBC 266, saturation low at 13, ferritin 103, folate is 20 and B12 723. IMAGING: Chest x-ray showed cardiomegaly. Renal ultrasound showed renal cysts. ASSESSMENT AND PLAN: A 73-year-old male who has been evaluated because of iron deficiency anemia, most likely due to gastrointestinal bleeding in addition to chronic kidney disease, stage 3. At this point, agree with optimizing his iron level by transfusion. Recommend to continue fourth dose tomorrow. In addition to that, we will recheck his hemoglobin next week in the clinic. No evidence of nutritional deficiencies. I do expect suboptimal response since the patient is still reporting black stool. Recommend to continue to hold anticoagulation due to severe anemia and GI bleeding. <ELECTRONICALLY SIGNED> By: Edmundo Diallo MD 05/31/19 2147 1301 [id number] Diallo MD /nt
== END 2019-05-31 16:16 | disposition home health service (06) | DRG 811 ==
LOC: M.2W 16:07
PROVIDERS: Family Medicine; Internal Medicine; Internal Medicine Nephrology; ADMIT Family Medicine
PROC: 30233N1 Transfusion of Nonautologous Red Blood Cells into Peripheral Vein, Percutaneous Approach (ICD-10-PCS; principal; 2019-05-24)
PROC: 0DJ08ZZ Inspection of Upper Intestinal Tract, Via Natural or Artificial Opening Endoscopic (ICD-10-PCS; 2019-05-25)
PROC: 30233N1 Transfusion of Nonautologous Red Blood Cells into Peripheral Vein, Percutaneous Approach (ICD-10-PCS; 2019-05-29)
DX: D62 Acute posthemorrhagic anemia (principal); N17.0 Acute kidney failure with tubular necrosis; I50.32 Chronic diastolic (congestive) heart failure; I13.0 Hypertensive heart and chronic kidney disease with heart failure and stage 1 through stage 4 chronic kidney disease, or unspecified chronic kidney disease; N18.4 Chronic kidney disease, stage 4 (severe); M54.9 Dorsalgia, unspecified; E78.5 Hyperlipidemia, unspecified; J45.909 Unspecified asthma, uncomplicated; K27.9 Peptic ulcer, site unspecified, unspecified as acute or chronic, without hemorrhage or perforation; F41.9 Anxiety disorder, unspecified; F32.9 Major depressive disorder, single episode, unspecified; Z96.643 Presence of artificial hip joint, bilateral; G47.33 Obstructive sleep apnea (adult) (pediatric); G89.4 Chronic pain syndrome; K31.89 Other diseases of stomach and duodenum; Z91.013 Allergy to seafood; Z95.2 Presence of prosthetic heart valve; Z88.8 Allergy status to other drugs, medicaments and biological substances; Z79.82 Long term (current) use of aspirin; Z79.899 Other long term (current) drug therapy

== ENCOUNTER → 2019-08-08 | Outpatient (CLI) | payer MEDICARE, OTHER ==
[~2019-08-08] MED LIST changes: +BRIMONIDINE 0.110 ML EA. EYE; +CALCIUM500 MG PO; +COZAAR 25 MG TA25 M1 PO; +ELIQUIS2.5 MG PO; +LASIX 40 MG TAB40 MG PO; +MACROBID 100 M100 MG SUBLING; +MAGNESIUM250 M1 PO; +PLAVIX 75 MG TA75 M1 PO; +POTASSIUM20 PO; +SPIRONOLACTONE25 M1 PO; +THERA M PLUS T1 EAC2 PO
[2019-08-08 12:32] LABS: ABSOLUTE BASOPHILS 0.1 thou/uL (0.0-0.2); ABSOLUTE EOSINOPHILS 0.1 thou/uL (0.0-0.7); ABSOLUTE LYMPHOCYTES 1.1 thou/uL (0.8-5.3); ABSOLUTE MONOCYTES 0.5 thou/uL (0.0-1.2); ABSOLUTE NEUTROPHILS 1.9 thou/uL (1.6-8.1); BASOPHILS 1.7 %; EOSINOPHILS 3.8 %; HEMATOCRIT 28.9 % (42.0-52.0); LYMPHOCYTES 30.9 %; MCH 29.7 pg (26.0-34.0); MCHC 34.8 g/dL (28.0-37.0); MCV 85.4 fL (80.0-100.0); MONOCYTES 12.2 %; MPV 8.8 fl. (7.2-11.1); NUCLEATED RBCS 0 /100WBC; PLATELET COUNT* 162 thou/uL (150-400); POLYS 51.4 %; RBC 3.38 mil/uL (4.50-6.00); WBC 3.7 thou/uL (4.0-11.0)
[2019-08-08 13:01] LABS: ALBUMIN 3.2 g/dL (3.4-5.0); CALCIUM 8.6 mg/dL (8.5-10.1); POTASSIUM 3.5 mmol/L (3.5-5.1); TOTAL BILIRUBIN 0.3 mg/dL (<0.1-1.0); TOTAL PROTEIN 6.1 g/dL (6.4-8.2)
== END ==
LOC: M.RAD 11:43
PROVIDERS: Registered Nurse
DX: J98.4 Other disorders of lung (principal); I12.9 Hypertensive chronic kidney disease with stage 1 through stage 4 chronic kidney disease, or unspecified chronic kidney disease; N18.3 Chronic kidney disease, stage 3 (moderate)

== ENCOUNTER → 2019-08-14 | Outpatient (CLI) | payer MEDICARE, OTHER ==
--- NOTE | 2019-08-14 13:38 | 2DMMODE ---
[place] [address] 2 D/M-MODE ECHOCARDIOGRAM Name: ROMINA CARDONA II Room: [facility]#: [id number] Admission: 08/14/19 Attend Phys: Krysta Alvarado RN Discharge: Date of : 45 Date of Service: 08/14/19 1338 Report #: [id number] THIS REPORT FOR: //name// APPROVED REPORT Study performed: 08/14/2019 08:58:06 EXAM: Comprehensive 2D, Doppler, and color-flow Echocardiogram Patient Location: Out-Patient BSA: 2.21 HR: 75 bpm BP: 120/72 mmHg Other Information Study Quality: Fair Indications Mitral Valve Disease 2D Dimensions IVSd: 12.76 (7-11mm) LVOT Diam: 20.23 (18-24mm) LVDd: 46.15 mm PWd: 11.32 (7-11mm) Ascending Ao: 29.81 (22-36mm) LVDs: 34.16 (25-40mm) Aortic Root: 21.20 mm Volumes Left Atrial Volume (Systole) LA ESV Index: 26.30 mL/m2 Aortic Valve AoV Peak Michael.: 2.00 m/s AO Peak Gr.: 15.97 mmHg LVOT Max P.53 mmHg AO Mean Gr.: 9.48 mmHg LVOT Mean P.94 mmHg LVOT Max V: 1.37 m/s AO V2 VTI: 38.27 cm LVOT Mean V: 0.92 m/s REAL (VTI): 2.41 cm2 LVOT V1 VTI: 28.67 cm Mitral Valve MV Peak Gr.: 14.54 mmHg MV Mean Gr.: 8.34 mmHg E/A Ratio: 0.97 MV Decel. Time: 397.81 ms MV E Max Michael.: 1.43 m/s MV PHT: 115.37 [place] [address] 2 D/M-MODE ECHOCARDIOGRAM Name: ROMINA CARDONA II Room: [facility]#: [id number] Admission: 08/14/19 Attend Phys: Krysta Alvarado RN Discharge: Date of : 45 Date of Service: 08/14/19 1338 Report #: [id number] MVA (PHT): 1.91 cm2 TDI E/Lateral E': 17.88 E/Medial E': 20.43 Medial E' Michael.: 0.07 m/s Lateral E' Michael.: 0.08 m/s Pulmonary Valve PV Peak Michael.: 0.90 m/s PV Peak Gr.: 3.27 mmHg Tricuspid Valve RAP Estimate: 5.00 mmHg TR Peak Gr.: 29.80 mmHg RVSP: 34.80 mmHg PA Pressure: 34.80 mmHg Left Ventricle The left ventricle is normal size. There is left ventricular systolic dysynergy consistent wit bundle branch block. Mild concentric left ventricular hypertrophy. Left ventricular systolic function is normal. LVEF is 55-60%. Grade I - abnormal relaxation pattern. Right Ventricle The right ventricle is normal size. The right ventricular systolic function is normal. Atria Left atrium is mildly dilated. The right atrium size is normal. Aortic Valve The aortic valve is normal in structure. Bioprosthetic aortic valve is present. No aortic regurgitation is present. There is no aortic valvular stenosis. Mitral Valve Moderate mitral annular calcification. Mild mitral regurgitation. Mild mitral stenosis. Tricuspid Valve The tricuspid valve is normal in structure. Mild tricuspid regurgitation. The RVSP is 35-40 mmHg. Pulmonic Valve The pulmonary valve is normal in structure. There is no [place]mon[place] [address] 2 D/M-MODE ECHOCARDIOGRAM Name: ROMINA CARDONA DELVIN BARROSO Room: [facility]#: [id number] Admission: 08/14/19 Attend Phys: Krysta Alvarado RN Discharge: Date of : 45 Date of Service: 08/14/19 1338 Report #: [id number] Great Vessels The aortic root is normal in size. IVC is normal in size and collapses >50% with inspiration. Pericardium There is no pericardial effusion. <Conclusion> The left ventricle is normal size. Mild concentric left ventricular hypertrophy. Left ventricular systolic function is normal. LVEF is 55-60%. Grade I - abnormal relaxation pattern. There is left ventricular systolic dysynergy consistent wit bundle branch block. Left atrium is mildly dilated. Bioprosthetic aortic valve is present. There is no aortic valvular stenosis. Moderate mitral annular calcification. Mild mitral regurgitation. Mild mitral stenosis. Mild tricuspid regurgitation. The RVSP is 35-40 mmHg. IVC is normal in size and collapses >50% with inspiration. <ELECTRONICALLY SIGNED> By: Tobi Fernandez MD, FACC 08/14/19 1338 Tobi Fernandez MD, FACC /INF
== END ==
LOC: M.CRD 08:48
DX: I08.1 Rheumatic disorders of both mitral and tricuspid valves (principal); R60.0 Localized edema

== ENCOUNTER 2020-02-15 19:56 | Emergency (ER) | payer MEDICARE, OTHER ==
[~2020-02-15] VITALS: Ht 177.8 cm; Wt 98.4 kg
[2020-02-15] MEDS ORDERED: LIPITOR 20 MG T20 M1 PO (20:11)
[2020-02-15] MEDS ORDERED: TORSEMIDE10 MG PO (20:12)
[2020-02-15 21:50] VITALS: BP 144/88
== END 2020-02-15 21:50 | disposition home or self-care (01) ==
LOC: M.ERS 19:56
DX: S51.812A Laceration without foreign body of left forearm, initial encounter (principal); S80.812A Abrasion, left lower leg, initial encounter; I48.91 Unspecified atrial fibrillation; J45.909 Unspecified asthma, uncomplicated; Z96.643 Presence of artificial hip joint, bilateral; Z90.49 Acquired absence of other specified parts of digestive tract; Z91.013 Allergy to seafood; Z88.8 Allergy status to other drugs, medicaments and biological substances; W01.0XXA Fall on same level from slipping, tripping and stumbling without subsequent striking against object, initial encounter; Y93.89 Activity, other specified; Y92.89 Other specified places as the place of occurrence of the external cause; Y99.8 Other external cause status

== ENCOUNTER → 2020-06-17 | Outpatient (CLI) | payer MEDICARE, OTHER ==
[~2020-06-17] MED LIST changes: +LIPITOR 20 MG T20 M1 PO; +TORSEMIDE10 MG PO
[2020-06-17 14:10] LABS: ALBUMIN 3.3 g/dL (3.4-5.0); DIRECT BILIRUBIN 0.2 mg/dL (<0.1-0.3); TOTAL BILIRUBIN 0.6 mg/dL (<0.1-1.0)
== END ==
LOC: M.LAB 13:30
PROVIDERS: ATTEND Internal Medicine Cardiovascular Disease
DX: Z79.899 Other long term (current) drug therapy (principal)

== ENCOUNTER 2020-09-23 10:48 | Emergency (ER) | payer MEDICARE, OTHER ==
[~2020-09-23] VITALS: Ht 175.3 cm; Wt 87.1 kg
[2020-09-23 11:13] LABS: NUCLEATED RBCS 0 /100WBC
[2020-09-23 11:17] LABS: HEMATOCRIT 39.4 % (42.0-52.0); MCH 28.1 pg (26.0-34.0); MCHC 33.1 g/dL (28.0-37.0); MCV 84.8 fL (80.0-100.0); MPV 9.6 fl. (7.2-11.1); PLATELET COUNT* 151 thou/uL (150-400); RBC 4.65 mil/uL (4.50-6.00); RDW-CV 17.9 % (10.5-14.5); WBC 4.9 thou/uL (4.0-11.0)
[2020-09-23 11:23] LABS: CREATININE 2.7 mg/dL (0.6-1.3)
[2020-09-23 11:28] LABS: APTT 27.5 Seconds (25.0-31.3)
[2020-09-23 11:35] LABS: ALBUMIN 3.4 g/dL (3.4-5.0); TOTAL BILIRUBIN 0.4 mg/dL (<0.1-1.0)
[2020-09-23 11:42] LABS: ABSOLUTE EOSINOPHILS 0.2 thou/uL (0.0-0.7); ABSOLUTE LYMPHOCYTES 2.4 thou/uL (0.8-5.3); ABSOLUTE MONOCYTES 0.4 thou/uL (0.0-1.2); ABSOLUTE NEUTROPHILS 1.9 thou/uL (1.6-8.1); LARGE PLATELETS OCCASIONAL; PLATELET ESTIMATE ADEQUATE
[2020-09-23 12:37] VITALS: BP 113/69
--- NOTE | 2020-09-23 14:23 | EKG ---
[place] [address] ELECTROCARDIOGRAM REPORT Name: ROMINA CARDONA II Room: [facility]#: [id number] Admission: 09/23/20 Attend Phys: Discharge: 09/23/20 Date of : 45 Date of Service: 09/23/20 1115 Report #: [id number] THIS REPORT FOR: //name// [facility] ED Test Date: 2020-09-23 Test Time: 11:15:42 Pat Name: ROMINA CARDONA Department: Room: Gender: Commissions Manager: [facility] : 1945 Requested By: Viral Thorpe Order Number: [id number] MD: Ajay Hernadez Measurements Intervals Bowden Rate: 67 P: -45 SC: 388 QRS: -17 QRSD: 160 T: 90 QT: 456 QTc: 482 Interpretive Statements Sinus or ectopic atrial rhythm Prolonged SC interval Left bundle branch block Compared to ECG 05/25/2019 06:32:44 no change Electronically Signed On 09-23-2020 14:22:55 BLOCK GREASER by Ajay Hernadez [email or web address] <ELECTRONICALLY SIGNED> By: Ajay Hernadez MD, FAC 09/23/20 1422 1115 1115 Ajay Hernadez MD, [facility] /EPI
== END 2020-09-23 12:38 | disposition home or self-care (01) ==
LOC: M.ERS 10:48
PROVIDERS: Family Medicine
DX: R20.2 Paresthesia of skin (principal); J45.909 Unspecified asthma, uncomplicated; I48.91 Unspecified atrial fibrillation; Z90.89 Acquired absence of other organs; Z79.899 Other long term (current) drug therapy; Z88.8 Allergy status to other drugs, medicaments and biological substances; Z91.013 Allergy to seafood

== ENCOUNTER 2020-10-05 09:50 | Inpatient (IN) | payer MEDICARE, OTHER ==
[~2020-10-05] VITALS: Ht 175.3 cm; Wt 86.6 kg
[2020-10-05 09:57] VITALS: BP 169/88
[2020-10-05] MEDS ORDERED: LISINOPRIL5 MG PO (10:02)
[2020-10-05] MEDS ORDERED: NORCO 10-325 T1 EACH PO (10:02)
[2020-10-05 11:36] LABS: ABSOLUTE BASOPHILS 0.1 thou/uL (0.0-0.2); ABSOLUTE EOSINOPHILS 0.3 thou/uL (0.0-0.7); ABSOLUTE LYMPHOCYTES 1.3 thou/uL (0.8-5.3); ABSOLUTE MONOCYTES 0.5 thou/uL (0.0-1.2); ABSOLUTE NEUTROPHILS 2.3 thou/uL (1.6-8.1); BASOPHILS 2.7 %; EOSINOPHILS 6.5 %; HEMATOCRIT 39.1 % (42.0-52.0); HEMOGLOBIN 12.9 gm/dL (14.0-18.0); LYMPHOCYTES 27.9 %; MCV 84.8 fL (80.0-100.0); MONOCYTES 11.9 %; NUCLEATED RBCS 0 /100WBC; PLATELET COUNT* 134 thou/uL (150-400); RBC 4.61 mil/uL (4.50-6.00); WBC 4.5 thou/uL (4.0-11.0)
[2020-10-05 11:59] LABS: CREATININE 2.3 mg/dL (0.6-1.3); POTASSIUM 3.9 mmol/L (3.5-5.1)
[2020-10-05 13:20] VITALS: BP 153/70
[2020-10-05 16:12] VITALS: BP 164/80
[2020-10-05 19:43] VITALS: BP 137/71
[2020-10-06 04:40] LABS: ABSOLUTE BASOPHILS 0.1 thou/uL (0.0-0.2); ABSOLUTE EOSINOPHILS 0.3 thou/uL (0.0-0.7); ABSOLUTE LYMPHOCYTES 2.2 thou/uL (0.8-5.3); ABSOLUTE MONOCYTES 0.7 thou/uL (0.0-1.2); ABSOLUTE NEUTROPHILS 3.5 thou/uL (1.6-8.1); BASOPHILS 1.9 %; EOSINOPHILS 4.9 %; HEMATOCRIT 32.3 % (42.0-52.0); LYMPHOCYTES 32.1 %; MCH 28.1 pg (26.0-34.0); MCHC 33.2 g/dL (28.0-37.0); MCV 84.5 fL (80.0-100.0); MONOCYTES 10.3 %; MPV 9.9 fl. (7.2-11.1); NUCLEATED RBCS 0 /100WBC; PLATELET COUNT* 120 thou/uL (150-400); POLYS 50.8 %; RBC 3.82 mil/uL (4.50-6.00); RDW-CV 18.1 % (10.5-14.5)
[2020-10-06 04:48] LABS: CALCIUM 8.1 mg/dL (8.5-10.1); CREATININE 2.3 mg/dL (0.6-1.3); POTASSIUM 4.2 mmol/L (3.5-5.1)
[2020-10-06 04:52] LABS: HEMOGLOBIN 10.7 gm/dL (14.0-18.0)
[2020-10-06 08:08] VITALS: BP 146/78
[2020-10-06 15:46] VITALS: BP 140/72
[2020-10-06 20:00] VITALS: BP 153/76
[2020-10-07 08:11] VITALS: BP 129/75
[2020-10-07 16:00] VITALS: BP 130/68
[2020-10-07 20:00] VITALS: BP 161/82
[2020-10-07 20:36] VITALS: BP 161/82
[2020-10-08] MEDS ORDERED: MEDROLDOSEPACK PO ×5 (17:21→17:26)
== END 2020-10-08 18:29 | DRG 558 ==
LOC: M.ERS 09:50 → M.TBA-ER 11:15 → M.3W 11:15
PROVIDERS: Emergency Medicine Emergency Medical Services; ADMIT Internal Medicine; ATTEND Internal Medicine
PROC: 5A09357 Assistance with Respiratory Ventilation, Less than 24 Consecutive Hours, Continuous Positive Airway Pressure (ICD-10-PCS; principal; 2020-10-05)
DX: M76.12 Psoas tendinitis, left hip (principal); N18.4 Chronic kidney disease, stage 4 (severe); Q60.0 Renal agenesis, unilateral; M84.452A Pathological fracture, left femur, initial encounter for fracture; S70.02XA Contusion of left hip, initial encounter; J45.909 Unspecified asthma, uncomplicated; G89.29 Other chronic pain; J44.9 Chronic obstructive pulmonary disease, unspecified; I12.9 Hypertensive chronic kidney disease with stage 1 through stage 4 chronic kidney disease, or unspecified chronic kidney disease; I48.91 Unspecified atrial fibrillation; Z96.641 Presence of right artificial hip joint; Z96.1 Presence of intraocular lens; Z20.822 Contact with and (suspected) exposure to COVID-19; Z98.41 Cataract extraction status, right eye; Z98.42 Cataract extraction status, left eye; Z95.4 Presence of other heart-valve replacement; Z98.1 Arthrodesis status; Z88.8 Allergy status to other drugs, medicaments and biological substances; Z91.013 Allergy to seafood; Z79.899 Other long term (current) drug therapy

== ENCOUNTER 2020-10-08 16:33 | Inpatient (IN) | payer MEDICARE, OTHER ==
[~2020-10-08] VITALS: Ht 175.3 cm; Wt 89.4 kg
[2020-10-08] MEDS ORDERED: MEDROLDOSEPACK PO ×5 (17:21→17:26)
[2020-10-08 18:30] VITALS: BP 148/67
[2020-10-08 19:00] VITALS: BP 139/67
--- NOTE | 2020-10-08 21:00 | NUR ---
PATIENT ARRIVED ON DAY SHIFT. ALERT AND ORIENTED. STATES PAIN IN BACK AND LEFT HIP AT A "5". URINAL AND CALL LIGHT WITHIN REACH. REHAB ADMISSION TOOL COMPLETED. PHARMACIST CALLED AND SAID THE METHYLPREDNISONE DOSE PACK WAS ORDERED INCORRECTLY. DR. SAENZ NOTIFIED AND HE CLARIFIED AND CORRECTED THE ORDERS.
[2020-10-09 04:00] LABS: HEMOGLOBIN 11.9 gm/dL (14.0-18.0); MCH 28.2 pg (26.0-34.0); MCHC 33.2 g/dL (28.0-37.0); MPV 9.6 fl. (7.2-11.1); RBC 4.23 mil/uL (4.50-6.00); RDW-CV 17.4 % (10.5-14.5); WBC 9.2 thou/uL (4.0-11.0)
[2020-10-09 04:10] LABS: CALCIUM 8.4 mg/dL (8.5-10.1); CREATININE 2.5 mg/dL (0.6-1.3); POTASSIUM 4.9 mmol/L (3.5-5.1)
--- NOTE | 2020-10-09 05:27 | NUR ---
RESTED POORLY. PATIENT STATES TONIGHT HE IS NOT GOING TO TAKE THE METHYPREDNISONE. PATIENT STANDS AT BEDSIDE TO VOID. PAIN MEDICATION GIVEN AT 2123 AND 0410 FOR COMPLAINT OF BACK AND LEFT HIP PAIN WITH RELIEF. HOURLY ROUNDING IN PROGRESS.
[2020-10-09 06:10] VITALS: BP 127/75
[2020-10-09 08:00] VITALS: BP 151/76
--- NOTE | 2020-10-09 16:31 | NUR ---
PATIENT COMPLETED THERAPIES ORDERED THIS SHIFT. PRN HYDROCODONE GIVEN FOR LEFT LEG PAIN X 2 THIS SHIFT. UP WITH ASSISTANCE OF 1, GAIT BELT AND WALKER. DRESSINGS REMAIN INTACT TO MULT SKIN TEARS. PATIENT C/O INSOMNIA FROM MEDROL AT NIGHT, NOTIFIED DR. TREJO AND DIRECTIONS CHANGED AND MELATONIN ORDERED FOR SLEEP. PATIENT UPDATED ON PLAN OF CARE AND NEW MEDICATIONS.
[2020-10-09 19:25] VITALS: BP 144/69
--- NOTE | 2020-10-10 05:24 | NUR ---
ASSUMED CARES AT 1920. ALERT AND ORIENTED. CPAP AT NIGHT. MIN ASSIST WITH GAIT BELT AND WALKER. URINAL AT NIGHT. PAIN MEDS GIVEN FOR LEFT HIP. SLEPT SOME. CALL LIGHT IN REACH AND BED ALARM ON.
[2020-10-10 07:30] VITALS: BP 159/75
--- NOTE | 2020-10-10 10:54 | NUR ---
Nutrition: Pt admitted to rehab s/p falls. He has one kidney, afib. Regular diet ordered, eating 100% per [employer]. Consult for poor intake and wt loss. Usual wt in 2019 was 216-230#. Wt has been in 190s more recently. Currently 197#. Will follow wt, po intake, labs. No albumin recorded at this time. WIll follow weekly on rehab unit. Mild risk.
--- NOTE | 2020-10-10 15:24 | NUR ---
I have reviewed the documentation by CAROLE HERNANDEZ from 10/09/20 to 10/10/20 and I concur with it. CHRISTIAN HASSAN
--- NOTE | 2020-10-10 16:18 | NUR ---
PT WORKED WITH THERAPIES. PRN PAIN MEDICATION GIVEN PER PT REQUEST. VOIDS PER URINAL. UP WITH GAIT BELT, WALKER AND STB ASSIST. BED/CHAIR ALARMS ON NEEDED.
[2020-10-10 20:00] VITALS: BP 153/78
--- NOTE | 2020-10-11 00:47 | NUR ---
ASSUMED CARE AT 1930. PATIENT UP TO TOILET TO VOID AND HAVE BM AT CHANGE OF SHIFT. UP WITH SBA, GAIT BELT, WALKER. DOES OWN HYGIENE. TAKES PILLS WHOLE WITH WATER. LATER VOIDED STANDING PER URINAL WITH NURSING BESIDE HIM. APPLIED OWN CPAP AT HS. MIPILEX DRESSINGS TO LT STEEL, RT FOREARM AND LT FOREARM C/D/I. MEDICATED FOR PAIN, SEE NOV. MELATONIN AT HS. HOURLY ROUNDS CONTINUE. BED ALARM ON. CALL LITE IN REACH
--- NOTE | 2020-10-11 05:43 | NUR ---
SLEPT MOST OF THE NIGHT EXCEPT TO VOID. VOIDED STANDING PER URINAL. UP WITH GAIT BELT, WALKER. NO C/O PAIN. TURNS SELF. APPLIES OWN CPAP. HOURLY ROUNDS CONTINUE. BED ALARM ON. CALL LITE IN REACH
[2020-10-11 08:00] VITALS: BP 120/64
--- NOTE | 2020-10-11 16:17 | NUR ---
PATIENT COMPLETED THERAPIES ORDERED. PRN VICODIN GIVEN X 2 THIS SHIFT, GOOD RELIEF NOTED. WOUND PHOTOS TAKEN AND DRESSINGS CHANGED PER PROTOCOL. UP WITH ASSISTANCE; GAIT BELT AND WALKER.
[2020-10-11 20:00] VITALS: BP 155/70
--- NOTE | 2020-10-11 23:17 | NUR ---
ASSUMED CARE AT 1915. UP WITH SBA, GAIT BELT, WALKER. DOES OWN HYGIENE. TAKES PILLS WHOLE WITH WATER. VOIDED AT HS PER TOILET, ATTEMPTED BM, BUT NO RESULTS FROM MEW ORDER OF MIRLIAX STARTED THIS PM. SEE NOV. APPLIES OWN CPAP AT HS. MIPILEX DRESSINGS TO LT STEEL, RT FOREARM AND LT FOREARM C/D/I. MEDICATED FOR PAIN, SEE NOV. MELATONIN AT HS. REVIEWED SAFETY MEASURES, INCLUDING BED ALARM AND GAIT BELT. HOURLY ROUNDS CONTINUE. BED ALARM ON. CALL LITE IN REACH.
--- NOTE | 2020-10-12 06:18 | NUR ---
SLEPT MUCH OF THE NIGHT. UP ONCE TO VOID, STANDING PER URINAL AT BEDSIDE. UP WITH SBA GB FOR VOIDING. NO FURTHER C/O PAIN. TURNS SELF. HOURLY ROUNDS CONTINUE. BED ALARM ON. CALL LITE IN REACH.
[2020-10-12 07:40] VITALS: BP 158/78
--- NOTE | 2020-10-12 16:47 | NUR ---
PATIENT UP IN CHAIR THIS SHIFT. PATIENT CALLING OUT FREQUENTLY MAKING NEEDS KNOWN. UP WITH ASSISTANCE TO BATHROOM, BM NOTED X 3 AND VOIDING PER URINAL. AT BEDSIDE THIS EVENING. PRN HYDROCODONE GIVEN X 3 FOR LEFT HIP PAIN, GOOD RELIEF NOTED. DRESSINGS REMAIN IN PLACE TO MULT SKIN TEARS.
[2020-10-12 20:00] VITALS: BP 129/59
--- NOTE | 2020-10-12 22:26 | NUR ---
ASSUMED AT 192. PATIENT RESTIN IN BED, BUT FLINGS LEGS OFF THE SIDE OF THE BED SETTING ALARM MANY TIMES DESPITE REPEATED EDUCATION ON FALL PREVENTIONS AND PRECAUTIONS. REFUSES MORE THAN TWO SIDE RAILS UP. PATIENT IS FRUSTRATED BY ORDERS FOR BED ALARM AND UP WITH ASSISTENCE ONLY, WHICH IS IN ACCORDANCE WITH PHYSICIAN ORDERS AND FALL PRECAUTIONS. UP WITH SBA, GAIT BELT, REFUSES WALKER TO VOID AT BEDSIDE, BUT WILL USE TO GO TO TOILET. TAKES PILLS ALL AT ONE TIME WITH WATER. TURNS SELF. MEDICATED FOR PAIN, SEE MAR. HOURLY ROUNDS CONTINUE. BED ALARM ON. CALL LITE IN REACH.
--- NOTE | 2020-10-13 05:45 | NUR ---
SLEPT MOST OF THE NIGHT UNTIL AROUND 0400. UP TO VOID PER URINAL AT BEDSIDE. REFUSED WALKER. THIS NURSE OBSERVED PATIENT SWAYING A SMALL BIT MAINTAINING BALANCE. HE HOLDS HIS OWN URINAL AND DOES HIS OWN SKIN CARE AFTER VOIDING. NO FURTHER C/O PAIN AFTER TAKING PAIN PILL AT HS. TURNS SELF. HOURLY ROUNDS CONTINUE. BED ALARM ON. CALL LITE IN REACH.
[2020-10-13 07:59] VITALS: BP 144/73
--- NOTE | 2020-10-13 08:25 | NUR ---
INITIAL ASSESSMENT: PATIENT ADMITTED TO THE [facility] ON 10/08/20 WITH A DIAGNOSIS OF LEFT HIP FX. PATIENT ALERT AND ORIENTED. PATIENT INDEPENDENT WITH ADL'S AND ACTIVE PRIOR TO ADMIT. PATIENT RESIDES AT HOME WITH SPOUSE. PATIENTS HOME HAS 6 STEPS TO THE MAIN ENTRY. PATIENT OWNS A WALKER AND A CANE, BUT ONLY USED THEM IN THE COMMUNITY. PATIENT USES A CPAP AT [facility]. PT HAS PAST HH HX, BUT COULD NOT RECALL THE NAME. PATIENT HAS 0 SNF HX. CM WILL REMAIN AVAILABLE TO ASSIST AND FOLLOW NEEDED.
[2020-10-13 20:00] VITALS: BP 133/71
--- NOTE | 2020-10-14 05:23 | NUR ---
ASSUMED CARES AT 1920. ALERT AND ORIENTED. PLEASANT. C/O PAIN TO LT HIP AND BACK. PAIN MEDS GIVEN NEEDED. MIN ASSIST WITH GAIT BELT AND WALKER. UP TO BATHROOM OR USED URINAL. SLEPT OFF AND ON. CALL LIGHT IN REACH AND BED ALARM ON.
[2020-10-14 06:41] VITALS: BP 124/71
[2020-10-14 08:00] VITALS: BP 155/82
--- NOTE | 2020-10-14 14:51 | NUR ---
AM ASSESSMENT AND VITAL SIGNS COMPLETED DOCUMENTED. PT WORKED WITH PT, OT AND ST AND CONTINUES TO PROGRESS. PRN HYDROCODONE GIVEN TWICE FOR C/O HIP AND BACK PAIN. PT IS USING THE CALL LIGHT FOR ASSISTANCE. FALL PRECAUTIONS AND HOURLY ROUNDING CONTINUE.
[2020-10-14 20:00] VITALS: BP 116/67
--- NOTE | 2020-10-15 04:15 | NUR ---
ASSUMED CARES AT 1920. ALERT AND ORIENTED. PLEASANT. C/O LT HIP AND BACK PAIN. PAIN MEDS GIVEN. SBA WITH GAIT BELT AND WALKER. UP TO BATHROOM. USED URINAL OVERNIGHT. SLEPT OFF AND ON.
[2020-10-15 04:50] LABS: HEMATOCRIT 34.6 % (42.0-52.0); HEMOGLOBIN 11.7 gm/dL (14.0-18.0); MCH 28.3 pg (26.0-34.0); MCHC 33.9 g/dL (28.0-37.0); MCV 83.7 fL (80.0-100.0); MPV 9.6 fl. (7.2-11.1); RBC 4.14 mil/uL (4.50-6.00); WBC 6.1 thou/uL (4.0-11.0)
[2020-10-15 05:26] LABS: CALCIUM 8.3 mg/dL (8.5-10.1); CREATININE 2.5 mg/dL (0.6-1.3)
[2020-10-15 08:00] VITALS: BP 136/72
[2020-10-15] MEDS ORDERED: MIRALAX17 GM PO (12:56)
[2020-10-15] MEDS ORDERED: VOLTAREN GEL 1100 G1 TOP (12:56)
[2020-10-15 13:30] VITALS: BP 136/72
[2020-10-15 14:25] VITALS: BP 136/72
[2020-10-15 14:42] VITALS: BP 136/72
--- NOTE | 2020-10-15 14:57 | NUR ---
TEAM [facility]ENCE MEETING HELD TODAY. CM AND PHYSICIAN INFORMED PT OF MEETING AND PLAN TO D/C PT HOME TODAY WITH HH. PT INFORMS THAT HE HAS NO PREFERENCE OF HH AND AGREES TO HH WITH [facility]. CM FAXED PT'S CLINICAL INFO AND D/C ORDERS TO [facility]. PT HAS ALL NEEDED DME (WALKER, CANE, AND CPAP) AT HOME. CM WILL REMAIN AVAILABLE TO ASSIST AND FOLLOW NEEDED. [facility] PHONE: [phone] FAX: [phone]
--- NOTE | 2020-10-15 15:43 | NUR ---
ASSESSMENT COMPLETED DOCUMENTED THIS MORNING. PATIENT ANXIOUS TO GO HOME AND DC ORDERS WERE RECD AFTER TEAM CONFERENCE. LAST SESSIONS WITH THERAPY PERFORMED. 1452 DC INSTRUCTIONS, MED EDUCATION F/U VISITS EXPLAINED WITH UNDERSTANDING VERBALIZED, SIGNATURE OBTAINED AND PATIENT WAS DCD VIA W/C ACCOMPANIED BY NURSING STAFF TO FAMILY CAR WITH .
--- NOTE | 2020-10-17 10:06 | NUR ---
I have reviewed the documentation by CAROLE HERNANDEZ from 10/13/20 to 10/17/20 and I concur with it. CHRISTIAN HASSAN
== END 2020-10-15 14:52 | disposition home health service (06) | DRG 605 ==
LOC: M.REH 16:33
PROVIDERS: ADMIT Physical Medicine & Rehabilitation; ATTEND Physical Medicine & Rehabilitation
DX: S70.02XA Contusion of left hip, initial encounter (principal); R53.81 Other malaise; Z96.643 Presence of artificial hip joint, bilateral; N18.30 Chronic kidney disease, stage 3 unspecified; J45.909 Unspecified asthma, uncomplicated; G89.29 Other chronic pain; M54.9 Dorsalgia, unspecified; I48.91 Unspecified atrial fibrillation; Z95.2 Presence of prosthetic heart valve; Z88.8 Allergy status to other drugs, medicaments and biological substances; Z91.013 Allergy to seafood; Z98.42 Cataract extraction status, left eye; Z98.41 Cataract extraction status, right eye; W18.39XA Other fall on same level, initial encounter; Y93.89 Activity, other specified; Y92.89 Other specified places as the place of occurrence of the external cause; Y99.8 Other external cause status

== ENCOUNTER → 2020-12-25 | Outpatient (CLI) | payer MEDICARE, OTHER ==
[~2020-12-25] MED LIST changes: +MEDROLDOSEPACK PO; +MIRALAX17 GM PO; +VOLTAREN GEL 1100 G1 TOP
[2020-12-25 15:11] LABS: ALBUMIN 3.8 g/dL (3.4-5.0); DIRECT BILIRUBIN 0.3 mg/dL (<0.1-0.3); TOTAL BILIRUBIN 0.8 mg/dL (<0.1-1.0); TOTAL PROTEIN 7.4 g/dL (6.4-8.2)
== END ==
LOC: M.RAD 13:48
PROVIDERS: ATTEND Internal Medicine Cardiovascular Disease
DX: J98.4 Other disorders of lung (principal); I65.23 Occlusion and stenosis of bilateral carotid arteries

== ENCOUNTER → 2021-01-22 | Outpatient (CLI) | payer MEDICARE, OTHER | LOC: M.CT 12:51 | PROVIDERS: ATTEND Surgery | DX: J32.0 Chronic maxillary sinusitis (principal); M47.812 Spondylosis without myelopathy or radiculopathy, cervical region; M48.02 Spinal stenosis, cervical region; I65.23 Occlusion and stenosis of bilateral carotid arteries; N18.9 Chronic kidney disease, unspecified; R42 Dizziness and giddiness; G93.9 Disorder of brain, unspecified ==

== ENCOUNTER → 2021-02-25 | Outpatient (CLI) | payer MEDICARE, OTHER ==
--- NOTE | 2021-02-25 13:17 | 2DMMODE ---
[place] [address] 2 D/M-MODE ECHOCARDIOGRAM Name: DULCEROMINAKIRBY HARGROVE II Room: [facility]#: [id number] Admission: 02/25/21 Attend Phys: Tobi Fernandez, Discharge: Date of : 45 Date of Service: 02/25/21 1317 Report #: [id number] THIS REPORT FOR: cc: Corey Kenny Gregg R. DO Holkins, John M. MD [facility] ~ APPROVED REPORT Study performed: 02/25/2021 09:55:17 EXAM: Comprehensive 2D, Doppler, and color-flow Echocardiogram Patient Location: Out-Patient BSA: 2.08 HR: 71 bpm BP: 130/70 mmHg Other Information Study Quality: Adequate Indications Aortic Valve Disease 2D Dimensions IVSd: 13.05 (7-11mm) LVOT Diam: 16.62 (18-24mm) LVDd: 39.30 mm PWd: 11.82 (7-11mm) Ascending Ao: 33.87 (22-36mm) LVDs: 29.76 (25-40mm) Aortic Root: 34.52 mm Volumes Left Atrial Volume (Systole) LA ESV Index: 51.60 mL/m2 Aortic Valve AoV Peak Michael.: 1.91 m/s AO Peak Gr.: 14.67 mmHg LVOT Max P.23 mmHg AO Mean Gr.: 8.29 mmHg LVOT Mean P.72 mmHg LVOT Max V: 1.34 m/s AO V2 VTI: 39.30 cm LVOT Mean V: 0.88 m/s REAL (VTI): 1.54 cm2 LVOT V1 VTI: 27.97 cm AI Bonner: 1.30 m/s2 AI PHT: 844.86 [place] [address] 2 D/M-MODE ECHOCARDIOGRAM Name: ROMINA CARDONA II Room: [facility]#: [id number] Admission: 02/25/21 Attend Phys: Tobi Fernandez, Discharge: Date of : 45 Date of Service: 02/25/21 1317 Report #: [id number] Mitral Valve MV Mean Gr.: 6.53 mmHg E/A Ratio: 1.08 MV Decel. Time: 410.24 ms MV E Max Michael.: 1.71 m/s MV PHT: 118.97 ms MVA (PHT): 1.85 cm2 TDI E/Lateral E': 21.38 E/Medial E': 34.20 Medial E' Michael.: 0.05 m/s Lateral E' Michael.: 0.08 m/s Pulmonary Valve PV Peak Michael.: 0.77 m/s PV Peak Gr.: 2.37 mmHg Tricuspid Valve RAP Estimate: 5.00 mmHg TR Peak Gr.: 33.85 mmHg RVSP: 38.85 mmHg PA Pressure: 38.85 mmHg Left Ventricle The left ventricle is normal size. There is normal LV segmental wall motion. There is normal left ventricular wall thickness. Left ventricular systolic function is normal. The left ventricular ejection fraction is within the normal range. LVEF is 55-60%. The left ventricular diastolic function is normal. Right Ventricle The right ventricle is normal size. The right ventricular systolic function is normal. Atria Left atrium is moderately dilated. The right atrium size is normal. Aortic Valve Moderate aortic valve sclerosis. Bioprosthetic aortic valve is present. Trace aortic regurgitation. No hemodynamically significant valvular aortic stenosis. Mitral Valve The mitral valve is mildly thickened. There is mitral annular calcification. Mild to moderate mitral regurgitation. Mild mitral stenosis. [place] [address] 2 D/M-MODE ECHOCARDIOGRAM Name: ROIMNA CARDONA DELVIN BARROSO Room: [facility]#: [id number] Admission: 02/25/21 Attend Phys: Tobi Fernandez, Discharge: Date of : 45 Date of Service: 02/25/21 1317 Report #: [id number] The tricuspid valve is normal in structure. There is no tricuspid valve regurgitation noted. Pulmonic Valve The pulmonary valve is normal in structure. There is no pulmonic valvular regurgitation. Great Vessels The aortic root is normal in size. IVC is not well visualized. Pericardium There is no pericardial effusion. <Conclusion> The left ventricle is normal size. There is normal left ventricular wall thickness. Left ventricular systolic function is normal. The left ventricular ejection fraction is within the normal range. LVEF is 55-60%. The left ventricular diastolic function is normal. The right ventricle is normal size. Left atrium is moderately dilated. The right atrium size is normal. Moderate aortic valve sclerosis. Trace aortic regurgitation. No hemodynamically significant valvular aortic stenosis. The mitral valve is mildly thickened. There is mitral annular calcification. Mild to moderate mitral regurgitation. Mild mitral stenosis. The tricuspid valve is normal in structure. There is no pericardial effusion. Bioprosthetic aortic valve is present. <ELECTRONICALLY SIGNED> By: Yury Robledo MD, FACC 02/25/21 1317 16 16 Yury Robledo MD, FACC /INF
== END ==
LOC: M.CRD 10:00
PROVIDERS: ATTEND Internal Medicine Cardiovascular Disease
DX: I34.0 Nonrheumatic mitral (valve) insufficiency (principal); Z95.2 Presence of prosthetic heart valve

== ENCOUNTER → 2021-05-29 | Outpatient (CLI) | payer MEDICARE, OTHER ==
[2021-05-29 08:44] LABS: APTT 25.2 Seconds (25.0-31.3); PROTIME 10.6 Seconds (9.20-11.50)
== END | disposition home or self-care (01) ==
LOC: M.LAB 05-21 11:01
DX: M54.5 Low back pain (principal); M48.061 Spinal stenosis, lumbar region without neurogenic claudication; M51.84 Other intervertebral disc disorders, thoracic region; M51.86 Other intervertebral disc disorders, lumbar region; G03.9 Meningitis, unspecified; I12.9 Hypertensive chronic kidney disease with stage 1 through stage 4 chronic kidney disease, or unspecified chronic kidney disease; N18.9 Chronic kidney disease, unspecified; J44.9 Chronic obstructive pulmonary disease, unspecified; Z98.890 Other specified postprocedural states; Z79.899 Other long term (current) drug therapy

== ENCOUNTER → 2021-08-13 | Outpatient (CLI) | payer MEDICARE, OTHER ==
[2021-08-13 13:28] LABS: DIRECT BILIRUBIN 0.1 mg/dL (<0.1-0.3); TOTAL BILIRUBIN 0.3 mg/dL (<0.1-1.0)
[2021-08-13 13:29] LABS: ALBUMIN 3.1 g/dL (3.4-5.0); TOTAL PROTEIN 8.8 g/dL (6.4-8.2)
== END ==
LOC: M.RAD 11:45
PROVIDERS: ATTEND Internal Medicine Cardiovascular Disease
DX: I48.0 Paroxysmal atrial fibrillation (principal); I50.32 Chronic diastolic (congestive) heart failure; Z95.2 Presence of prosthetic heart valve; Z79.899 Other long term (current) drug therapy